=== PATIENT | female | born 1935 | race Caucasian/White ===

== ENCOUNTER 2024-02-19 06:15 | Outpatient (REF) | payer SELFPAY ==
[2024-02-19 06:28] LABS: MANUAL DIFF FLAG NO
[2024-02-19 06:39] LABS: Basophils Percent Auto 0.2 % (0-2); Eosinophils Absolute Auto 0.2 X10*3/uL (0.0-0.4); Eosinophils Percent Auto 2.5 % (0-4); Hematocrit 30.9 % (37.0-47.0); Hemoglobin 10.6 g/dl (12.0-16.0); Imm Gran Abs Auto 0.03 X10*3/uL (0.00-0.03); Imm Gran Pct Auto 0.3 % (0.0-0.4); Lymphocytes Absolute Auto 3.3 X10*3/uL (1.2-4.9); Lymphocytes Percent Auto 36.2 % (20-40); Mean Corpuscular HGB Conc 34.3 g/dl (31.0-35.0); Mean Corpuscular Hemoglobin 31.2 pg (27.0-33.0); Mean Corpuscular Volume 90.9 fL (80.0-98.0); Mean Platelet Volume 9.8 fL (9.4-12.3); Monocytes Absolute Auto 1.2 X10*3/uL (0.1-1.2); Monocytes Percent Auto 13.5 % (2-11); Neutrophils Absolute Auto 4.3 x10*3/uL (2.0-8.3); Neutrophils Percent Auto 47.3 % (45-73); Platelet Count 321 X10*3/uL (160-400); Red Cell Distribution Width 15.5 % (11.0-16.0); White Blood Count 9.1 X10*3/uL (4.8-10.8)
[2024-02-19 07:13] LABS: Alanine Aminotransferase 11 U/L (0-31); Albumin Level 2.7 g/dL (3.5-5.0); Alkaline Phosphatase 66 U/L (39-117); Anion Gap 10 (12-20); Aspartate Amino Transferase 19 U/L (5-31); Bilirubin Total 0.6 mg/dL (0.0-1.0); Blood Urea Nitrogen 13 mg/dL (9-16); Calcium 8.4 mg/dL (8.4-10.2); Carbon Dioxide 32 mmol/L (22-29); Chloride 100 mmol/L (96-108); Estimated Glomerular Filt Rate > 60; Glucose Random 88 mg/dL (60-115); Potassium 2.7 mmol/L (3.3-5.1); Sodium 139 mmol/L (135-145); Total Protein 5.5 g/dL (6.5-8.0)
== END 2024-02-19 06:16 | disposition home or self-care (01) ==
LOC: HO.MMNH1L 06:15
PROVIDERS: Visit Provider Family Medicine
DX: I10 Essential (primary) hypertension (principal)
CPT/HCPCS: 36415; 80053; 85025

== ENCOUNTER 2025-02-04 00:42 | Inpatient (IN) | payer MEDICARE, SELFPAY ==
[2025-02-04] VITALS (8 sets, daily range): BP systolic 105–147; BP diastolic 46–76; PULSE 70–88; RESP 14–20; TEMP 36.3–36.9; O2SAT 93–99; BMI 15.1
--- NOTE | ~2025-02-04 | CT_ITS ---
CLINICAL HISTORY: fall CT cervical spine without contrast Comparison: None Findings: There is 2 mm of anterolisthesis of C3 on C4. There is 4 mm of anterolisthesis of C4 on C5. There is straightening of the normal cervical lordosis within the lower cervical spine. Minor convex right mid cervical curvature. Bones are severely osteopenic. No acute fracture or prevertebral soft tissue swelling is identified. Multilevel degenerative disc disease and degenerative facet disease, most severe at C5-6 and C6-7 where there is near-complete loss of the disc space heights with discogenic sclerosis and osteophytic ridging. Upper airway is patent. Emphysematous changes within the lung apices without pneumothorax. Large bilateral pleural effusions. Partial visualization of a right internal jugular central venous catheter. IMPRESSION: 1. No acute fracture. 2. Multilevel spondylolisthesis with potential muscle spasm. 3. Multilevel degenerative disc disease and degenerative facet disease. 4. Large bilateral pleural effusions. Dedicated imaging of the chest is suggested. This document has been electronically signed by: Red Gay MD on 02/04/2025 02:59:25
--- NOTE | ~2025-02-04 | XR_ITS ---
CLINICAL HISTORY: pleural effusion seen on cervical spine CT 1 view chest x-ray Comparison: None Findings: Extensive bilateral reticular opacities, interstitial edema or infiltrate versus chronic interstitial lung change. Bilateral basilar consolidations or infiltrates and small layering effusions. Heart size is normal. No acute fracture. Right anterior chest wall Port-A-Cath with distal tip at the cavoatrial junction. IMPRESSION: 1. Extensive bilateral reticular opacities, interstitial edema or infiltrate versus chronic interstitial lung change. 2. Bilateral basilar consolidations or infiltrates and small layering effusions. This document has been electronically signed by: Bravo Morales MD, PHD on 02/04/2025 04:05:35
--- NOTE | ~2025-02-04 | CT_ITS ---
CLINICAL HISTORY: fall CT head without contrast Comparison: None Findings: There is age-appropriate atrophy. Ex vacuo dilatation of the ventricular system related to this degree of atrophy. [id number] areas of low-attenuation are identified within the periventricular and deep white matter. [place]-white differentiation is well preserved. No midline shift or mass effect. No intracranial hemorrhage. No acute calvarial fracture. IMPRESSION: 1. No fracture or intracranial hemorrhage. 2. Senescent changes as above. This document has been electronically signed by: Red Gay MD on 02/04/2025 02:55:52
--- NOTE | ~2025-02-04 | XR_ITS ---
CLINICAL HISTORY: fall injury 3 view right wrist Comparison: None Findings: Imaged scaphoid deformity appears old/chronic. Small calcification or ossicle appears old/chronic adjacent to the scaphoid trapezium articulation. 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 Additional osteoarthritis is moderate and multifocal. Soft tissue swelling with effusion present. Vascular calcifications including expected radial and ulnar arteries IMPRESSION: 1. Moderate osteoarthritis of the right wrist. 2. Mild Scaphoid deformity is nonspecific and likely old/chronic. This document has been electronically signed by: Osmin Araiza MD on 02/04/2025 02:44:12
--- NOTE | 2025-02-04 01:06 | ECG_ITS ---
Test Reason : FALL Blood Pressure : */* mmHG Vent. Rate : 75 BPM Atrial Rate : 75 BPM P-R Int : 276 ms QRS Dur : 122 ms QT Int : 370 ms P-R-T Axes : 80 -24 97 degrees QTcB Int : 413 ms Sinus rhythm with 1st degree A-V block Left ventricular hypertrophy with QRS widening and repolarization abnormality ( Matti product ) Abnormal ECG No previous ECGs available Referred By: Generic ED Physician Electronically Signed By: Negro Gomez
[2025-02-04 01:56] LABS: MANUAL DIFF FLAG NO
[2025-02-04 01:57] LABS: Basophils Percent Auto 0.3 % (0-2); Eosinophils Absolute Auto 0.1 X10*3/uL (0.0-0.4); Eosinophils Percent Auto 1.5 % (0-4); Hematocrit 32.3 % (37.0-47.0); Hemoglobin 11.4 g/dl (12.0-16.0); Imm Gran Abs Auto 0.08 X10*3/uL (0.00-0.03); Imm Gran Pct Auto 0.9 % (0.0-0.4); Lymphocytes Absolute Auto 0.7 X10*3/uL (1.2-4.9); Lymphocytes Percent Auto 8.2 % (20-40); Mean Corpuscular HGB Conc 35.3 g/dl (31.0-35.0); Mean Corpuscular Hemoglobin 31.6 pg (27.0-33.0); Mean Corpuscular Volume 89.5 fL (80.0-98.0); Mean Platelet Volume 10.3 fL (9.4-12.3); Monocytes Absolute Auto 0.9 X10*3/uL (0.1-1.2); Neutrophils Absolute Auto 6.9 x10*3/uL (2.0-8.3); Neutrophils Percent Auto 79.1 % (45-73); Platelet Count 238 X10*3/uL (160-400); Red Blood Count 3.61 X10*6/uL (4.20-5.50); Red Cell Distribution Width 15.6 % (11.0-16.0); White Blood Count 8.8 X10*3/uL (4.8-10.8)
[2025-02-04 02:02] LABS: INTERNATIONAL NORM RATIO 1.3 (0.9-1.1); Prothrombin Time 15.1 SEC (10.9-12.4)
[2025-02-04 02:22] LABS: Alanine Aminotransferase 84 U/L (0-31); Albumin Level 1.9 g/dL (3.5-5.0); Alkaline Phosphatase 96 U/L (39-117); Anion Gap 11 (12-20); Aspartate Amino Transferase 122 U/L (5-31); Bilirubin Total 0.6 mg/dL (0.0-1.0); Blood Urea Nitrogen 14 mg/dL (9-16); Carbon Dioxide 28 mmol/L (22-29); Chloride 104 mmol/L (96-108); Creatinine Clr Calc Pharmacy 41.6; Estimated Glomerular Filt Rate > 60; Glucose Random 80 mg/dL (60-115); Potassium 3.5 mmol/L (3.3-5.1); Sodium 139 mmol/L (135-145); Total Protein 4.6 g/dL (6.5-8.0)
[2025-02-04 02:28] LABS: Troponin-I High Sensitivity 56.5 ng/L (<3.5-17.0)
--- NOTE | 2025-02-04 03:20 | PC.NURSE ---
TW spoke with Traci requesting update on pt. Explained we were awaiting on provider to read reports. TW questioned cocyx pressure wound noted. Traci reports that PT is seen by wound care. Wound care orders per zoran : Cleanse with NS. pat dry and apply zinc oxide, leave open to air.
--- NOTE | 2025-02-04 03:54 | ED_ITS ---
HPI - Fall General Chief Complaint: Fall Stated Complaint: SNF fall, skin tears, +thinners & collar, unkn LOC Time Seen by Provider: 02/04/25 03:35 Source: patient and EMS Mode of arrival: EMS Limitations: no limitations History of Present Illness ED Provider: Dr. Alla Cerna HPI Narrative: Patient comes to the emergency room via ambulance from [facility]. Patient had an unwitnessed fall. According to the patient, patient was sleeping and she accidentally rolled out of bed and fell down. Patient has skin tears to the left side of the face cheek, no side of the neck and right wrist. Patient denies headache. Patient does take blood thinners. Patient denies headache. Related Data Allergies Allergy/AdvReac Type Severity Reaction Status Date / Time Iodinated Contrast Media Allergy Fever Verified 02/04/25 01:30 [Contrast Dye] ondansetron [From Zofran] Allergy Headache Verified 02/04/25 01:30 Review of Systems 2 Review of Systems: Constitutional : No Weight loss, No Fever, No Chills, No Night Sweats, No Fatigue, No Malaise ENT/Mouth : No Hearing loss, No Ear Pain, No Nasal Congestion, No Sinus Pain, No Hoarseness, No sore throat, No Rhinorrhea, No Swallowing Difficulty Eyes: No Eye Pain, No Swelling, No Redness, No Foreign Body, No Discharge, No Vision Changes Cardiovascular : No Chest Pain, No SOB, No Dyspnea on Exertion, No Orthopnea, No Edema, No Palpitations Respiratory : No Cough, No Sputum, No Wheezing, No Smoke Exposure, No Dyspnea Gastrointestinal : No Nausea, No Vomiting, No Diarrhea, No Constipation, No abdominal Pain, No Hematochezia, No Melena Genitourinary : no irregular bleeding, No Dysuria, No Urinary Frequency, No Hematuria, No Urinary Incontinence, No Urgency, No Flank Pain, No Urinary Flow Changes, No Hesitancy Musculoskeletal : No joint pain, No Myalgias, No Joint Swelling Skin : Complaining of pain over the skin tears on the right wrist left side of the face and left neck Neuro : No Weakness, No Numbness, No Paresthesias, No Loss of Consciousness, No Dizziness, No Headache Psych : No Anxiety/Panic, No Depression, No SI/HI/AH/VH, No Social Issues, Heme/Lymph: No Bruising, No Bleeding,No Lymphadenopathy Endocrine : No Polyuria, No Polydipsia, No Temperature Intolerance [facility] Past Medical History Medical History (Updated 02/04/25 @ 07:39 by Alla Cerna MD) 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 Oriented X3. No acute distress. Eyes: Pupils equal, round and reactive to light. ENT: Pharynx normal. Neck: Normal inspection. Neck supple. No lymph nodes noted. No crepitus CVS: Normal heart rate and rhythm. Pulses normal. Normal S1 and S2 Respiratory: No respiratory distress. Breath sounds normal. No Wheezing. No rales Abdomen: Soft and nontender. No rigidity. No distention. Skin: patient has a large skin tear, U shaped in the dorsal aspect of the right wrist. Also, patient has a triangular shaped large tear on the left side of the neck and a smaller 1 on the left side of the face. Patient has a chronic pressure wound on the coccyx, looks clean Extremities: No lower extremity edema. No Lacerations. No Rash Neuro: Oriented X 3. No motor deficit. No sensory deficit. Moving all extremities. No slurred speech. CN 2 through 12 grossly intact Psych: calm, cooperative, normal affect Medications Administered Discontinued Medications Generic Name Dose Route Start Last Admin Trade Name Bradq PRN Reason Stop Dose Admin Acetaminophen 975 mg 02/04/25 04:31 02/04/25 05:03 Acetaminophen 325 Mg Tablet PO 02/04/25 04:32 975 mg ONCE ONE Administration Cefuroxime Axetil 250 mg 02/04/25 05:38 02/04/25 06:42 Cefuroxime Axetil 250 Mg Tablet PO 02/04/25 05:39 250 mg ONCE ONE Administration Prochlorperazine Maleate 5 mg 02/04/25 04:47 02/04/25 05:00 Prochlorperazine Maleate 5 Mg Tablet PO 02/04/25 04:48 5 mg ONCE ONE Administration Medical Decision Making Medical Decision Making [facility] Narrative: my interpretation of labs: Patient's hematology at baseline, no significant chemistry abnormalities. Troponin 1. 56.5, no previous troponins for comparison. Patient denies any chest pain or shortness of breath my interpretation of EKG: Sinus rhythm, first-degree AV block, heart rate 75, no ST segment depression, nonspecific T-wave changes in V5 V6, QTC 413 patient denies any chest pain. Wrist x-ray: No fracture, patient does not have any scaphoid tenderness, likely chronic finding head CT and cervical spine do not show any acute abnormality. Old changes. However, CT scan of the neck shows large bilateral pleural effusions. Chest x-ray pending. Patient has no shortness of breath, even laying supine, patient's oxygen saturation remains at 99% chest x-ray: Reticular opacities, edema versus infiltrate versus chronic interstitial lung changes. Patient has no shortness of breath, no oxygen desaturation. Patient is able to lie supine with oxygen saturation 99%. Patient denies any cough or any URI symptoms. these are likely chronic changes. Patient is not fluid overloaded patient's troponin 1. Was 56.5. Patient's troponin 2. Increased to 149.1 troponin increased more than the 50. Admission request was sent to Dr. Scruggs, call back pending sign out given to Dr Mazariegos Differential Diagnosis Differential Diagnoses: The differential diagnosis associated with the presentation includes ( skin tears, contusions, concussion, intracranial bleed, cervical spine injury. Wrist fractures) Admission/Observation Consideration of admission/observation: Escalation of care including admission/observation considered Lab Data [facility] Lab Attestation statement: I reviewed the patient's lab results. 02/04/25 01:51 02/04/25 01:51 Labs: Lab Results 02/04/25 02/04/25 02/04/25 Range/Units 01:51 05:10 06:24 WBC 8.8 (4.8-10.8) X10*3/uL RBC 3.61 L D (4.20-5.50) X10*6/uL Hgb 11.4 L D (12.0-16.0) g/dl Hct 32.3 L (37.0-47.0) % MCV 89.5 (80.0-98.0) fL MCH 31.6 (27.0-33.0) pg MCHC 35.3 H (31.0-35.0) g/dl RDW 15.6 (11.0-16.0) % Plt Count 238 (160-400) X10*3/uL MPV 10.3 (9.4-12.3) fL Immature Gran % (Auto) 0.9 H (0.0-0.4) % Neut % (Auto) 79.1 H (45-73) % Lymph % (Auto) 8.2 L (20-40) % Hand % (Auto) 10.0 (2-11) % Eos % (Auto) 1.5 (0-4) % Baso % (Auto) 0.3 (0-2) % Lymph # (Auto) 0.7 L (1.2-4.9) X10*3/uL Hand # (Auto) 0.9 (0.1-1.2) X10*3/uL Eos # (Auto) 0.1 (0.0-0.4) X10*3/uL Baso # (Auto) 0.0 (0.0-0.2) X10*3/uL Abs Immat Gran (auto) 0.08 H (0.00-0.03) X10*3/uL Absolute Neuts (auto) 6.9 (2.0-8.3) x10*3/uL Absolute Nucleated RBC 0.000 (0.0-0.012) X10*3/uL Nucleated RBC % (auto) 0.0 (0.0-0.2) /100WBC PT 15.1 H (10.9-12.4) SEC INR 1.3 H (0.9-1.1) Sodium 139 (135-145) mmol/L Potassium 3.5 D (3.3-5.1) mmol/L Chloride 104 (96-108) mmol/L Carbon Dioxide 28 (22-29) mmol/L Anion Gap 11 L (12-20) BUN 14 (9-16) mg/dL Creatinine 0.65 (0.5-1.4) mg/dL Estim Creat Clear Calc 41.6 Estimated GFR > 60 Random Glucose 80 (60-115) mg/dL Calcium 8.0 L D (8.4-10.2) mg/dL Total Bilirubin 0.6 (0.0-1.0) mg/dL AST 122 H (5-31) U/L ALT 84 H (0-31) U/L Alkaline Phosphatase 96 (39-117) U/L Troponin I High Sens 56.5 H* 149.1 H* D (<3.5-17.0) ng/L Total Protein 4.6 L (6.5-8.0) g/dL Albumin 1.9 L (3.5-5.0) g/dL Urine Color Dark Yellow Urine Appearance Cloudy Urine pH 6.5 (5.0-9.0) Ur Specific [place] 1.015 (1.005-1.025) Urine Protein 30 (1+) H (Neg-Trace) mg/dL Urine Glucose (UA) Negative (Negative) mg/dL Urine Ketones 15 (Negative) mg/dL Urine Blood Small (1+) H (Negative) Urine Nitrite Negative (Negative) Ur Leukocyte Esterase Large (3+) H (Negative) Urine RBC 6-10 H (0-2) /HPF Urine WBC >50 H (0-5) /HPF Ur Squamous Epith Cells 0-2 (0-2) /HPF Urine Bacteria Trace (None Seen) Hyaline Casts 0-2 (0-2) /LPF Independent Interpretation I performed an independent interpretation of an: EKG and Plain X-Ray Radiology Impression Discussion of test interpretation with radiology: I have reviewed the radiologist's reading. Radiologist Impression: Imaged scaphoid deformity appears old/chronic. Small calcification or ossicle appears old/chronic adjacent to the scaphoid trapezium articulation. 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 Additional osteoarthritis is moderate and multifocal. Soft tissue swelling with effusion present. Vascular calcifications including expected radial and ulnar arteries There is age-appropriate atrophy. Ex vacuo dilatation of the ventricular system related to this degree of atrophy. [id number] areas of low-attenuation are identified within the periventricular and deep white matter. [place]-white differentiation is well preserved. No midline shift or mass effect. No intracranial hemorrhage. No acute calvarial fracture. Discharge Plan Discharge Clinical Impression: Fall, Multiple skin tears, Elevated troponin Patient Disposition: Admitted As Inpatient Additional Instructions: Please follow-up with your primary care physician tomorrow. If you have any worsening or new symptoms, please return to the emergency room or call 911 Print Language: Cambodian
[2025-02-04] MEDS: Prochlorperazine Maleate 5 MG TABLET PO (05:00)
[2025-02-04] MEDS: Acetaminophen 325 MG TABLET 975 MG PO (05:03)
[2025-02-04 05:15] LABS: Appearance Urine Cloudy; Color Urine Dark Yellow; Glucose Urine UA Negative (Negative); Leukocyte Esterase Urine Large (3+) (Negative); Nitrite Urine Negative (Negative); PH 6.5 (5.0-9.0); Specific Gravity - Urine 1.015 (1.005-1.025); UMIC TRIGGER UACC YES; Urine Blood Small (1+) (Negative); Urine Ketones 15 mg/dL (Negative); Urine Protein 30 (1+) mg/dL (Neg-Trace)
[2025-02-04 05:24] LABS: Bacteria Urine Trace (None Seen); Hyaline Casts Urine 0-2 /LPF (0-2); Squamous Epithelial Cell Urine 0-2 /HPF (0-2); UACC Culture Trigger YES; WBC Urine >50 /HPF (0-5)
[2025-02-04] MEDS: cefuroxime axetiL 250 MG TABLET PO ×2 (06:42→13:18)
[2025-02-04 07:25] LABS: Troponin-I High Sensitivity 149.1 ng/L (<3.5-17.0)
--- NOTE | 2025-02-04 08:06 | PHA.MEDREC ---
Pharmacy Consult ? Medication Reconciliation Pharmacy has completed the medication reconciliation. Utilized list from [facility]. OF NOTE: patient had a recent fill in Nov 2024 for Farxiga (only 30 days however) however it is not included on patients list from SNF.
[2025-02-04 08:59] LABS: B Type Natriuretic Peptide 615 pg/mL (<100)
[2025-02-04 10:29] LABS: Troponin-I High Sensitivity 164.1 ng/L (<3.5-17.0)
[2025-02-04] MEDS: Furosemide 20 MG/2 ML VIAL 10 MG IVPUSH (10:45)
[2025-02-04 11:11] LABS: Magnesium 1.4 mg/dL (1.6-2.6)
[2025-02-04 11:25] LABS: TSH reflex Free T4 0.83 uIU/mL (0.32-4.0)
--- NOTE | 2025-02-04 11:26 | PM.IMHP ---
History of Present Illness Date of Service: 02/04/25 Attending physician on admission: Daniela Marie Chief Complaint: s/p fall no LOC Pt is an 89 yo female with past medical history of hypothyroidism, GERD, CVA, B maculardegenerative changes, lymphoma diagnosed 2023 currently on chemotherapy, depression, osteoarthritis, recent weight loss and frailty due to lymphoma diagnosis, systolic CHF and history of cholecystectomy, full hysterectomy and R mastectomy due to breast cancer age 60 presents to [facility] status post fall at [facility]. Patient stated she was trying to turn in bed and fell through the bed but was able to call help. Patient does not recall loss of consciousness. Patient currently has abrasions on the left cheek and behind the neck area. CT of the head and cervical spine are all negative for any acute issues. Wrist xrays of R wristy also done and note osteogenerative changes byt no acute findings. Patient is currently alert and orientated x3 moving all extremities. In addition chest x-ray noted large bilateral pleural effusions and troponins that have elevated from 50 to 149 to now 160 during her time in the emergency department. EKG is negative for any ischemic changes but notes a Sinus rhythm, first-degree AV block, heart rate 75, no ST segment depression, nonspecific T-wave changes in V5 V6, QTC 413. Cardiology had been contacted by ED staff prior to admission. Patient denies any chest pain or SOB at rest. Pt is not currently requiring oxygen as well. Pt did receive 10 IV lasix in ED. Pt was hypokalmeic on admission, 2.7 but with supplementation, this has been corrected. Patient is considered frail with significant weight loss since 2023 of over 65 lb secondary to a diagnosis of lymphoma. Patient was to see the oncologist today at [facility] to discuss resumption of chemotherapy but per patient's son who is also the healthcare proxy, chemo likely will not resume. Reviewed advanced directives patient is currently a DNR DNI. Pt follows with Dr Gutierrez at [facility]. Last echo was 11/06/2023 per pt's daughter. Review of Systems Review of Systems: Pt currently denies chest pain, SOB at rest, abdominal pain, N/V, lower leg pain, joint pain but reports feeling very fatigued and tired as she was not able to sleep last night. Yes all other systems are reviewed and are negative [facility] Medical History (Updated 02/04/25 @ 12:34 by CHRISTINA Anderson) Hx of fdc use of blood thinners Hyperlipidemia CLL (chronic lymphocytic leukemia) Acute exacerbation of CHF (congestive heart failure) Hypertension Hypothyroidism CVA (cerebral vascular accident) Cognitive capacity: Alert and orientated X3 Ebola Risk: Travel/Contact With Anyone From Affected Area/s: No Has Patient Experienced Ebola Symptoms: No I have personally reviewed the patient's Ebola risk: Yes Meds Allergies Allergy/AdvReac Type Severity Reaction Status Date / Time Iodinated Contrast Media Allergy Fever Verified 02/04/25 01:30 [Contrast Dye] ondansetron [From Zofran] Allergy Headache Verified 02/04/25 01:30 Active Medications: Current Medications Acetaminophen (Acetaminophen 325 Mg Tablet) 650 mg PO Q6H PRN PRN Reason: Pain, Mild 1-3,fever,headache Calcium Carbonate (Calcium Carbonate 750 Mg Tab.Chew) 750 mg PO Q4H PRN PRN Reason: Heartburn Magnesium Hydroxide (Milk Of Magnesia 30 Ml Oral.Susp) 30 ml PO DAILY PRN PRN Reason: Constipation Melatonin (Melatonin 3 Mg Tablet) 6 mg PO BEDTIME PRN PRN Reason: Insomnia Ondansetron HCl (Ondansetron Hcl 4 Mg/2 Ml Vial) 4 mg IVPUSH Q8H PRN PRN Reason: Nausea and Vomiting Pharmacy Consult (Consult Rx Anticoag Dosing) 1 each MISCELLANE DAILY PRN; Protocol PRN Reason: Consult order Polyethylene Glycol (Polyethylene Glycol 3350 17 Gm Powd.Pack) 17 gm PO DAILY PRN PRN Reason: Constipation Senna (Sennosides 8.6 Mg Tablet) 17.2 mg PO BEDTIME DIANA Sodium Chloride (0.9 % Sodium Chloride Flush 3 Ml Syringe) 3 ml IVFLUSH QSHIFT [facility] Home Medications ?Medication ?Instructions ?Recorded ?Confirmed ?Last Taken ?Type acetaminophen 325 mg tablet 650 mg PO Q6H PRN Mild Pain (Scale 02/04/25 02/04/25 Unknown History Score 1-4) amiodarone 200 mg tablet 200 mg PO DAILY 02/04/25 02/04/25 Unknown History apixaban 2.5 mg tablet (Eliquis) 2.5 mg PO BID 02/04/25 02/04/25 Unknown History ascorbic acid (vitamin C) 250 mg 250 mg PO DAILY 02/04/25 02/04/25 Unknown History tablet atorvastatin 20 mg tablet 20 mg PO BEDTIME 02/04/25 02/04/25 Unknown History bisacodyl 10 mg rectal suppository 10 mg CA DAILY PRN 3 days with no 02/04/25 02/04/25 Unknown History (Dulcolax (bisacodyl)) BM cholecalciferol (vitamin D3) 25 25 mcg PO DAILY 02/04/25 02/04/25 Unknown History mcg (1,000 unit) tablet escitalopram oxalate 20 mg tablet 20 mg PO DAILY 02/04/25 02/04/25 Unknown History esomeprazole magnesium 40 mg 40 mg PO DAILY 02/04/25 02/04/25 Unknown History capsule,delayed release fludrocortisone 0.1 mg tablet 0.1 mg PO BID 02/04/25 02/04/25 Unknown History levothyroxine 125 mcg tablet 125 mcg PO DAILY 02/04/25 02/04/25 Unknown History multivitamin 1 tab PO DAILY 02/04/25 02/04/25 Unknown History potassium chloride 20 mEq 20 meq PO DAILY 02/04/25 02/04/25 Unknown History tablet,extended release prednisone 1 mg tablet 4 mg PO DAILY 02/04/25 02/04/25 Unknown History prochlorperazine maleate 5 mg 5 mg PO Q6H PRN nausea 02/04/25 02/04/25 Unknown History tablet Physical Exam Vital Signs and Narrative: Vital Signs: Last Vital Signs Temp 98.5 F 02/04/25 04:31 Pulse 74 02/04/25 09:11 Resp 14 02/04/25 09:11 BP 139/67 02/04/25 10:45 Pulse Ox 94 02/04/25 09:11 O2 Del Method Room Air 02/04/25 09:11 BMI result Body Mass Index 15.1 Alert and orientated X3, able to give good history. Neuro: CN II-X11 intact, no deficits, visual acuity intact EYES: PERRLA, EOM intact ENT: PASCUA YAQUI, no issues with swallowing, uvula midline, lips moist, nares patent no epistaxis Cardiac: S1 S2 RRR, no murmur, mild JVD, no edema in Lower ext Pulmonary: lungs diminshed B no adventitious sounds Abdominal: BS active in all 4 quadrants, no guarding, tenderness, rebounding MSK: strength 3/5 upper and lower extremities, pt is frail and underweight : no CVA tenderness no bladder distension Extremities: no edema in lower extremities, PT and DP pulses palpable +2 Psych: mood stable, judgement and insight good Results Labs 02/04/25 01:51 02/04/25 01:51 Labs: Laboratory Results - last 24 hr 02/04/25 02/04/25 02/04/25 01:51 05:10 08:18 MCV 89.5 MCH 31.6 MCHC 35.3 H RDW 15.6 Plt Count 238 MPV 10.3 Immature Gran % (Auto) 0.9 H Neut % (Auto) 79.1 H Lymph % (Auto) 8.2 L [place] % (Auto) 10.0 Eos % (Auto) 1.5 Baso % (Auto) 0.3 Lymph # (Auto) 0.7 L [place] # (Auto) 0.9 Eos # (Auto) 0.1 Baso # (Auto) 0.0 Abs Immat Gran (auto) 0.08 H Absolute Neuts (auto) 6.9 Absolute Nucleated RBC 0.000 Nucleated RBC % (auto) 0.0 PT 15.1 H INR 1.3 H Anion Gap 11 L Estim Creat Clear Calc 41.6 Estimated GFR > 60 Random Glucose 80 Calcium 8.0 L D Magnesium 1.4 L* Total Bilirubin 0.6 AST 122 H ALT 84 H Alkaline Phosphatase 96 Total Creatine Kinase 52 B-Natriuretic Peptide 615 H Total Protein 4.6 L Albumin 1.9 L TSH 0.83 Urine Color Dark Yellow Urine Appearance Cloudy Urine pH 6.5 Ur Specific [place] 1.015 Urine Protein 30 (1+) H Urine Glucose (UA) Negative Urine Ketones 15 Urine Blood Small (1+) H Urine Nitrite Negative Ur Leukocyte Esterase Large (3+) H Urine RBC 6-10 H Urine WBC >50 H Ur Squamous Epith Cells 0-2 Urine Bacteria Trace Hyaline Casts 0-2 ECG Attestation: I personally reviewed and interpreted this ECG as follows: ( Sinus rhythm, first-degree AV block, heart rate 75, no ST segment depression, nonspecific T-wave changes in V5 V6, QTC 413 patient denies any chest pain.) Imaging Radiologist's Impressions: CXR IMPRESSION: 1. Extensive bilateral reticular opacities, interstitial edema or infiltrate versus chronic interstitial lung change. 2. Bilateral basilar consolidations or infiltrates and small layering effusions. Cervical SPine IMPRESSION: 1. No acute fracture. 2. Multilevel spondylolisthesis with potential muscle spasm. 3. Multilevel degenerative disc disease and degenerative facet disease. 4. Large bilateral pleural effusions. Dedicated imaging of the chest is suggested. CT head IMPRESSION: 1. No fracture or intracranial hemorrhage. 2. Senescent changes as above. Wrist Xray IMPRESSION: 1. Moderate osteoarthritis of the right wrist. 2. Mild Scaphoid deformity is nonspecific and likely old/chronic. Assessment and Plan (1) Acute exacerbation of CHF (congestive heart failure): Qualifiers: Heart failure type: systolic Qualified Code(s): I50.23 - Acute on chronic systolic (congestive) heart failure Status: Acute (2) Hypokalemia: Status: Acute (3) Elevated troponin: Status: Acute (4) First degree atrioventricular block: Status: Acute (5) Afib: Status: Acute (6) Sacral decubitus ulcer: Qualifiers: Pressure injury stage: unspecified pressure injury stage Qualified Code(s): L89.159 - Pressure ulcer of sacral region, unspecified stage Status: Acute (7) Underweight: Status: Acute (8) Multiple skin tears: Status: Acute (9) Fall: Qualifiers: Encounter type: initial encounter Qualified Code(s): W19.XXXA - Unspecified fall, initial encounter Status: Acute (10) History of CVA (cerebrovascular accident): Status: Acute (11) CLL (chronic lymphocytic leukemia): Status: Acute (12) Hypothyroidism: Qualifiers: Hypothyroidism type: acquired Qualified Code(s): E03.9 - Hypothyroidism, unspecified Status: Acute (13) Hyperlipidemia: Qualifiers: Hyperlipidemia type: mixed hyperlipidemia Qualified Code(s): E78.2 - Mixed hyperlipidemia Status: Acute (14) Hypomagnesemia: Status: Acute (15) Transaminitis: Status: Acute Plan 1. Acute CHF exacerbation with large B pleural effusions, no hypoxia BNP 615 LFTs slightly elevated (do not suspect shock liver) pt is on amiodorone Pt received 10 mg of IV lasix X1 in ED not on oxygen strict I/Os ordered with daily wt no olguin required currently Lasix 20 IV daily KCL supplementation added as K was low on admission Telemetry ? if Pleural effusions related to CLL (pt has not been able to attend chemo since being in rehab), pt is not compromised If Thoracic available, can refer if needed for thoracentesis Cardiology consulted, pt follows with Dr. Gutierrez at [facility] Troponins elevated likely due to ischemic demand, 49 - 149- 160 non specific T wave changes on ECG, contiunue to trend Last Echo 11/06/23 will order echo 2. Hypokalemia 2.7 on admission Corrected to 3.5 Now on Lasix adding daily supplementation and BMP daily Telemetry 3. Elevated Troponin Likely related to ischemic demand, no chest pain, no ST elevations, some non specific T wave changes Continue to trend and cardiology consulted Telemetry 4. First Degree AVB CA 227 pt placed on telemetry Pt is on Amiodorone but no AV ronel blocking agents Cardiology consulted Checking TSH with reflex and magnesium 5. AFIB Pt continues on AC 2.5 daily Holding Amiodorone noting first degree block, await review from Cardiology LFTs elevated likely secondary to CHF or CLL, trend 6. Sacral Decubitus Ulcer Unclear date of etiology, pt is underweight with poor appetite, living with CLL dx Nutritional consult ordered ensure added Wound care consult ordered 7. Underweight with BMI 15.1 Nutritional consult ordered ensure added Wound care consult ordered Daily weights PT consulted for tomorrow, pt will likely return to [facility] to continue rehab 10. HX of CVA Pt has been in [facility] for rehab Pt overall is weak, malnourished dealing with CLL but no obvious deficits BP stable, pt is on eliquis 11. CLL recently on chemo Per pt's son, pt had appt today with oncology at [facility] but will not be able to attend Son indicated that pt may not be able to continue chemo any longer noting weakness, wt loss and poor appetite DNR DNI in place 12. UTI suspected UA looks suspicious for UTI Pt was started on Ceftin in ED will continue and follow culture No olguin indicated as pt is able to void 12. Hypothyrooidism Checking TSH with reflex Continue current dose of levothyroxine, await lab results 13. HLD Atorvastatin 20 mg HS, LFTs mildy elevated, will hold 14. Hypomagnesium MG 1.4, administering 2 GM IV now 400 mg daily recheck in AM 15. Transaminitis Likely secondary to CHf exacerbation vs CLL Trend Amiodorone and statin held today Total time managing care of this patient today: 45 minutes. Quality Stroke Does the patient have a stroke diagnosis?: No Reason for No Anti-thrombotic by Day Two: N/A - Med Ordered VTE Prior VTE?: No VTE Risk Level:: Medical - moderate - high VTE Device Contraindication: N/A - Device Ordered VTE Drug Contraindication: N/A - Med Ordered
--- NOTE | 2025-02-04 11:42 | PC.NURSE ---
Pt moved into hospital bed for comfort. repositioning patient side to side every 2 hours.
--- NOTE | 2025-02-04 11:48 | PC.NURSE ---
Messaged FARM MANAGER Brandyn regarding lasix, she advises to not give additional lasix at this time. wound care consult requested.
--- NOTE | 2025-02-04 12:11 | PM.CNCAR ---
History of Present Illness History of Present Illness Date of Service: 02/04/25 Requesting physician: Jacinda Ahumada Chief complaint: S/P Fall, ?CHF Narrative: [age] year female presenting with fall. History is quite limited from the patient as she is a poor historian. Chest x-ray has raise concern for potential infiltrates versus congestive heart failure. She is laying flat in bed and is not in any distress. She is denying any shortness of breath. No chest discomfort. Overall poor historian. On amiodarone and Eliquis 2.5 mg twice a day for previous history of atrial fibrillation. ECG showing left ventricular hypertrophy and first-degree AV block with SD interval 276 milliseconds. [facility], [facility] Past Medical History Medical History (Updated 02/04/25 @ 12:34 by CHRISTINA Anderson) Hx of emt intermediate use of blood thinners Hyperlipidemia CLL (chronic lymphocytic leukemia) Acute exacerbation of CHF (congestive heart failure) Hypertension Hypothyroidism CVA (cerebral vascular accident) Social History Social History (Updated 02/04/25 @ 11:42 by CHRISTINA Anderson) Are you DNR?: Yes Advance Directives: Yes Advance Directives Information Provided: Yes Healthcare Proxy: Yes If Yes to HCP, is it invoked: No Guardian: No Do you have a plan to hurt others: No Plan Travel History Ebola Risk: Travel/Contact With Anyone From Affected Area/s: No Has Patient Experienced Ebola Symptoms: No Meds Allergies Allergy/AdvReac Type Severity Reaction Status Date / Time Iodinated Contrast Media Allergy Fever Verified 02/04/25 01:30 [Contrast Dye] ondansetron [From Zofran] Allergy Headache Verified 02/04/25 01:30 Active Medications: Current Medications Acetaminophen (Acetaminophen 325 Mg Tablet) 650 mg PO Q6H PRN PRN Reason: Pain, Mild 1-3,fever,headache Calcium Carbonate (Calcium Carbonate 750 Mg Tab.Chew) 750 mg PO Q4H PRN PRN Reason: Heartburn Magnesium Hydroxide (Milk Of Magnesia 30 Ml Oral.Susp) 30 ml PO DAILY PRN PRN Reason: Constipation Melatonin (Melatonin 3 Mg Tablet) 6 mg PO BEDTIME PRN PRN Reason: Insomnia Ondansetron HCl (Ondansetron Hcl 4 Mg/2 Ml Vial) 4 mg IVPUSH Q8H PRN PRN Reason: Nausea and Vomiting Polyethylene Glycol (Polyethylene Glycol 3350 17 Gm Powd.Pack) 17 gm PO DAILY PRN PRN Reason: Constipation Senna (Sennosides 8.6 Mg Tablet) 17.2 mg PO BEDTIME DIANA Sodium Chloride (0.9 % Sodium Chloride Flush 3 Ml Syringe) 3 ml IVFLUSH QSHIFT [facility] Home Medications ?Medication ?Instructions ?Recorded ?Confirmed ?Last Taken ?Type acetaminophen 325 mg tablet 650 mg PO Q6H PRN Mild Pain (Scale 02/04/25 02/04/25 Unknown History Score 1-4) amiodarone 200 mg tablet 200 mg PO DAILY 02/04/25 02/04/25 Unknown History apixaban 2.5 mg tablet (Eliquis) 2.5 mg PO BID 02/04/25 02/04/25 Unknown History ascorbic acid (vitamin C) 250 mg 250 mg PO DAILY 02/04/25 02/04/25 Unknown History tablet atorvastatin 20 mg tablet 20 mg PO BEDTIME 02/04/25 02/04/25 Unknown History bisacodyl 10 mg rectal suppository 10 mg SD DAILY PRN 3 days with no 02/04/25 02/04/25 Unknown History (Dulcolax (bisacodyl)) BM cholecalciferol (vitamin D3) 25 25 mcg PO DAILY 02/04/25 02/04/25 Unknown History mcg (1,000 unit) tablet escitalopram oxalate 20 mg tablet 20 mg PO DAILY 02/04/25 02/04/25 Unknown History esomeprazole magnesium 40 mg 40 mg PO DAILY 02/04/25 02/04/25 Unknown History capsule,delayed release fludrocortisone 0.1 mg tablet 0.1 mg PO BID 02/04/25 02/04/25 Unknown History levothyroxine 125 mcg tablet 125 mcg PO DAILY 02/04/25 02/04/25 Unknown History multivitamin 1 tab PO DAILY 02/04/25 02/04/25 Unknown History potassium chloride 20 mEq 20 meq PO DAILY 02/04/25 02/04/25 Unknown History tablet,extended release prednisone 1 mg tablet 4 mg PO DAILY 02/04/25 02/04/25 Unknown History prochlorperazine maleate 5 mg 5 mg PO Q6H PRN nausea 02/04/25 02/04/25 Unknown History tablet Physical Exam Vital Signs: Vital Signs: Last Vital Signs Temp 98.5 F 02/04/25 04:31 Pulse 76 02/04/25 12:05 Resp 20 02/04/25 12:05 BP 147/62 H 02/04/25 12:05 Pulse Ox 98 02/04/25 12:05 O2 Del Method Room Air 02/04/25 12:05 BMI result Body Mass Index 15.1 GENERAL APPEARANCE: Frail, old lady laying flat in bed. In no distress. NECK: no carotid bruit, no jugular venous distention. SKIN: no suspicious lesions, warm and dry. HEART: no murmurs, regular rate and rhythm. LUNGS: clear to auscultation bilaterally. ABDOMEN: soft, nontender. EXTREMITIES: no edema. PERIPHERAL PULSES: equal. NEUROLOGIC: No gross deficits, AAO X 3 Objective Labs and Meds 02/04/25 01:51 02/04/25 01:51 Lab results: Laboratory Results - last 24 hr 02/04/25 02/04/25 02/04/25 01:51 05:10 06:24 WBC 8.8 RBC 3.61 L D Hgb 11.4 L D Hct 32.3 L MCV 89.5 MCH 31.6 MCHC 35.3 H RDW 15.6 Plt Count 238 MPV 10.3 Immature Gran % (Auto) 0.9 H Neut % (Auto) 79.1 H Lymph % (Auto) 8.2 L [place] % (Auto) 10.0 Eos % (Auto) 1.5 Baso % (Auto) 0.3 Lymph # (Auto) 0.7 L [place] # (Auto) 0.9 Eos # (Auto) 0.1 Baso # (Auto) 0.0 Abs Immat Gran (auto) 0.08 H Absolute Neuts (auto) 6.9 Absolute Nucleated RBC 0.000 Nucleated RBC % (auto) 0.0 PT 15.1 H INR 1.3 H Sodium 139 Potassium 3.5 D Chloride 104 Carbon Dioxide 28 Anion Gap 11 L BUN 14 Creatinine 0.65 Estim Creat Clear Calc 41.6 Estimated GFR > 60 Random Glucose 80 Calcium 8.0 L D Magnesium 1.4 L* Total Bilirubin 0.6 AST 122 H ALT 84 H Alkaline Phosphatase 96 Total Creatine Kinase 52 Troponin I High Sens 56.5 H* 149.1 H* D B-Natriuretic Peptide Total Protein 4.6 L Albumin 1.9 L TSH 0.83 Urine Color Dark Yellow Urine Appearance Cloudy Urine pH 6.5 Ur Specific [place] 1.015 Urine Protein 30 (1+) H Urine Glucose (UA) Negative Urine Ketones 15 Urine Blood Small (1+) H Urine Nitrite Negative Ur Leukocyte Esterase Large (3+) H Urine RBC 6-10 H Urine WBC >50 H Ur Squamous Epith Cells 0-2 Urine Bacteria Trace Hyaline Casts 0-2 02/04/25 02/04/25 08:18 09:52 WBC RBC Hgb Hct MCV MCH MCHC RDW Plt Count MPV Immature Gran % (Auto) Neut % (Auto) Lymph % (Auto) [place] % (Auto) Eos % (Auto) Baso % (Auto) Lymph # (Auto) [place] # (Auto) Eos # (Auto) Baso # (Auto) Abs Immat Gran (auto) Absolute Neuts (auto) Absolute Nucleated RBC Nucleated RBC % (auto) PT INR Sodium Potassium Chloride Carbon Dioxide Anion Gap BUN Creatinine Estim Creat Clear Calc Estimated GFR Random Glucose Calcium Magnesium Total Bilirubin AST ALT Alkaline Phosphatase Total Creatine Kinase Troponin I High Sens 164.1 H* B-Natriuretic Peptide 615 H Total Protein Albumin TSH Urine Color Urine Appearance Urine pH Ur Specific [place] Urine Protein Urine Glucose (UA) Urine Ketones Urine Blood Urine Nitrite Ur Leukocyte Esterase Urine RBC Urine WBC Ur Squamous Epith Cells Urine Bacteria Hyaline Casts Assessment and Plan (1) Acute exacerbation of CHF (congestive heart failure): Qualifiers: Heart failure type: systolic Qualified Code(s): I50.23 - Acute on chronic systolic (congestive) heart failure Status: Acute Plan [age] year female presenting with fall and concern for congestive heart failure. Overall does not appear to be significantly volume overloaded currently. Would favor starting her on low-dose diuretics 20 mg daily. Chest x-ray findings are little suspicious for heart failure but she was taking fludrocortisone which can lead to volume retention and fluid overload. In any case gentle diuresis with oral Lasix 20 mg daily. Unsure why she is on fludrocortisone currently. If this is for low blood pressure then potentially has to be stopped. If there is other reason then please discuss with endocrinology before stopping it. Thank you for allowing me to participate in the care of your patient. Please feel free to contact me if you have any questions. Procedures Date of Service Date of Service: 02/04/25
--- NOTE | 2025-02-04 13:00 | CA_ITS ---
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 There is normal left ventricular wall thickness. The left ventricular systolic function is mildly decreased. The visually estimated ejection fraction is between 40-45%. - Normal right ventricular cavity size. There is mildly decreased right ventricular systolic function. Findings Procedure Information Contrast agent, definity, is being given per protocol without apparent complications. The study quality is limited by patients body habitus. Left Ventricle Normal left ventricular cavity size. There is normal left ventricular wall thickness. The left ventricular systolic function is mildly decreased. The visually estimated ejection fraction is between 40-45%. There is moderate global hypokinesis. Diastolic function is indeterminate on the basis of available data. Right Ventricle Normal right ventricular cavity size. There is mildly decreased right ventricular systolic function. Atria The left atrium is normal in size. Aortic Valve The aortic valve was not well visualized. There is no aortic valve stenosis. There is no aortic valve regurgitation. Mitral Valve There is severe mitral annular calcification. There is no mitral valve regurgitation. There is no mitral valve stenosis. Pulmonic Valve The pulmonic valve is likely normal. There is trace pulmonic valve regurgitation. Tricuspid Valve Normal tricuspid valve structure. There is trace tricuspid valve regurgitation. Normal right atrial pressure. There is no evidence of pulmonary hypertension. Great Vessels All visible segments of the aorta are normal in size. The visualized portions of the pulmonary artery and branches are normal. Venous The inferior vena cava is normal in size and collapses greater than 50% with inspiration. Pericardium/Pleural There is no evidence of pericardial effusion. Prior Study Comparison No prior study available for comparison. Measurements 2D Linear Measurements IVSd: 0.67 0.6-0.9/0.6-1.0 cm LVIDd: 4.48 3.9-5.3/4.2-5.9 cm LVIDd Index: 2.95 2.4-3.2/2.2-3.1 cm/m2 LVIDs: 3.32 2.0-3.6 cm LVPWd: 0.71 0.7-1.1 cm LV Mass: 115.13 67-162/88-224 g LV Mass Index: 75.74 43-95/49-115 g/m2 LVOT Diam: 1.80 3.0+(-)1.3 cm 2D Systolic Function EF 4C: 41.00 >55% EF 2C: 43.00 >55% EF BiP: 40.80 >55% Mitral Valve MV VTI: 0.19 MV Pk John: 0.95 MV Mn John: 0.54 MV Pk Grad: 4.00 MV Mn Grad: 1.00 MV Pk E: 1.00 MV PK A: 0.57 MV Decel Time: 171.00 E/A: 1.80 E'Lateral: 4.35 E'Medial: 3.37 E/E' Med: 29.70 E/E' Lat: 23.00 PHT: 50.00 MVA PHT: 4.40 MVA Continuity: 1.60 Decel [place]: 5.84 Aortic Valve AoV Pk John: 0.96 AoV Mn John: 0.59 AoV VTI: 0.15 AoV Pk Grad: 4.00 Aov Mn Grad: 2.00 JOSE Cont.VTI: 1.94 LVOT LVOT Pk John: 0.78 LVOT Mn John: 0.46 LVOT VTI: 0.12 LVOT Pk Grad: 2.00 LVOT Mn Grad: 1.00 LVOT Diam: 1.80 LVOT Area: 2.54 Diastolic Function MV Pk E: 1.00 MV Pk A: 0.57 E/A: 1.80 E'Medial: 3.37 E/E' Med: 29.70 E' Laterial: 4.35 E/E' Lat: 23.00 Right Ventricle TAPSE (mm): 15.00 TVS' John: 8.27 Tricuspid Valve TR Pk John: 2.21 TR Pk Grad: 20.00 RA Press: 3.00 RVSP: 23.00 Great Vessels Aorta Sinus of Valsalva: 2.83 2.0-3.5 cm Updated in Other Vendor System with Status of Final Negro Gomez MD electronically signed on 02/04/2025 9:58:30 PM with status of Final
[2025-02-04] MEDS: Magnesium Sulfate/H2O 2 GM/50 ML PIGGYBACK IV (13:12)
[2025-02-04 14:52] LABS: Troponin-I High Sensitivity 113.4 ng/L (<3.5-17.0)
--- NOTE | 2025-02-04 15:29 | PM.EVENT ---
Event Note Date of Service: 02/05/25 Event Note: This patient is seen and examined with APC. Lab imaging, EKG reviewed. Physical exam and assessment and plan coordinated in APCs note, Agree with the plan in addition: Patient was admitted to the hospital status post fall-patient history, lab imaging reviewed with the APC , assessment and plan coordinated in H&P note of apc In addition Patient has multiple electrolytic abnormalities with with possible mild CHF No hypoxia, resting comfortably Mild elevated troponin possibly due to demand Hypokalemia and hypomagnesemia repleted-monitor renal function electrolytes UTI-on Ceftin, no sepsis at present. CLL recently on chemo -? Time Spent With Patient Time: Total time managing care of this patient today ____ minutes.
[2025-02-04] MEDS: 0.9 % Sodium Chloride Flush 3 ML SYRINGE IVFLUSH ×2 (17:01→22:05)
[2025-02-04] MEDS: Sennosides 8.6 MG TABLET 17.2 MG PO (22:03)
[2025-02-04] MEDS: polyethylene glycoL 3350 17 GM POWD.PACK PO (22:04)
[2025-02-04] MEDS: Bacitracin Oint 14 GM TUBE 1 APPL TOPICAL (22:11)
[2025-02-05] VITALS (7 sets, daily range): BP systolic 100–140; BP diastolic 51–67; PULSE 72–87; RESP 18–20; TEMP 36.3–37.3; O2SAT 93–98; BMI 15.1
[2025-02-05] MEDS: cefuroxime axetiL 250 MG TABLET PO ×2 (02:14→11:35)
[2025-02-05] MEDS: Metoclopramide HCl 10 MG/2 ML VIAL IVPUSH (02:42)
--- NOTE | 2025-02-05 08:17 | MHC.CM.PN ---
Addendum entered by Zulema Calero 02/05/25 12:22: [facility] supplied CM with a copy of the HCP, naming Lesley as the Agent. Addendum entered by Zulema Calero 02/05/25 08:22: Prior to SNF/STR, Patient lived alone in a house. Original Note: CM met with Patient at bedside and addressed IMM with her; original was given to Patient and a copy has been placed on the chart. Prior to [facility], Patient was at STR @ [facility] and it is Patient's goal to return there to complete STR. CM has initiated and will follow for dc planning. PCP/DINING ROOM CASHIER is Virginia Nance and Patient will require BLS back to STR @ time of dc. MARIA L has asked [facility] to fax a copy of Patient's HCP to CM.
[2025-02-05] MEDS: Potassium Chloride ER 20 MEQ TAB.ER.PRT PO (10:27)
[2025-02-05] MEDS: Furosemide 20 MG/2 ML VIAL IVPUSH (10:27)
[2025-02-05] MEDS: Magnesium Oxide 400 MG TABLET PO (10:27)
[2025-02-05] MEDS: Bacitracin Oint 14 GM TUBE 1 APPL TOPICAL ×2 (10:28→22:19)
[2025-02-05] MEDS: 0.9 % Sodium Chloride Flush 3 ML SYRINGE IVFLUSH ×3 (10:28→22:19)
--- NOTE | 2025-02-05 12:26 | MHC.CLN ---
PT IS MODERATELY MALNOURISHED PT WITH MILDLY DEPLETED SUBCUTANEOUS FAT AND MUSCLE MASS WITH BMI 15 AND INCREASED NUTRITION RISK R/T PRESSURE INJURY NO PREVIOUS WT HX AVAILABLE PT REPORTS WT LOSS OF UNKNOWN AMOUNT R/T RECENT LYMPHOMA DX WITH CHEMO DIET RX; CARDIAC CHOPPED WITH 1500ML FLUID RESTRICTION-RECOMMEND LIBERALIZING DIET R/T MALNUTRITION AND ADVANCED AGE RECOMMEND SWITCHING ENSURE MAX TO ENSURE BID TO PROVIDE 700KCALS, 40G PROTEIN AND PROMOTE WOUND HEALING MONITOR PO INTAKE AND ENCOURAGE SUPPLEMENTS SEE FULL CLINICAL NUTRITION ASSESSMENT
--- NOTE | 2025-02-05 13:29 | HO.PM.IMPN ---
Subjective Subjective Date of Service: 02/05/25 Interval History: ?chf ,multiple electrolytic abnormalities Review of Systems seems comfortable breathing denies any chest pain Physical Exam Vital Signs: Vital Signs: Last Vital Signs Temp 98.9 F 02/05/25 11:40 Pulse 83 02/05/25 11:40 Resp 20 02/05/25 11:40 BP 126/67 02/05/25 11:40 Pulse Ox 96 02/05/25 11:40 O2 Del Method Room Air 02/05/25 11:40 BMI result Body Mass Index 15.1 Appearance: Alert.? Oriented , frail, chronically sick looking. cvs: rrr, [id number] . res: air entry fair ,somewhat diminshed . abd:soft ,nt, bs present. ext pulses present , no cyanosis . neuro: nonfocal. Objective Data Active Medications Acetaminophen (Acetaminophen 325 Mg Tablet) 650 mg PO Q6H PRN PRN Reason: Pain, Mild 1-3,fever,headache Bacitracin (Bacitracin Oint 14 Gm Tube) 1 appl TOPICAL BID [facility]; Protocol Last Admin: 02/05/25 10:28 Dose: 1 appl Documented By: ADRIANA Calcium Carbonate (Calcium Carbonate 750 Mg Tab.Chew) 750 mg PO Q4H PRN PRN Reason: Heartburn Cefuroxime Axetil (Cefuroxime Axetil 250 Mg Tablet) 250 mg PO Q12H [facility] Last Admin: 02/05/25 11:35 Dose: 250 mg Documented By: ADRIANA Furosemide (Furosemide 20 Mg/2 Ml Vial) 20 mg IVPUSH DAILY [facility]; Protocol Last Admin: 02/05/25 10:27 Dose: 20 mg Documented By: ADRIANA Magnesium Hydroxide (Milk Of Magnesia 30 Ml Oral.Susp) 30 ml PO DAILY PRN PRN Reason: Constipation Magnesium Oxide (Magnesium Oxide 400 Mg Tablet) 400 mg PO DAILY [facility] Last Admin: 02/05/25 10:27 Dose: 400 mg Documented By: ADRIANA Melatonin (Melatonin 3 Mg Tablet) 6 mg PO BEDTIME PRN PRN Reason: Insomnia Metoclopramide HCl (Metoclopramide Hcl 10 Mg/2 Ml Vial) 10 mg IVPUSH Q6H PRN PRN Reason: Nausea and Vomiting Last Admin: 02/05/25 02:42 Dose: 10 mg Documented By: NIR Polyethylene Glycol (Polyethylene Glycol 3350 17 Gm Powd.Pack) 17 gm PO DAILY PRN PRN Reason: Constipation Last Admin: 02/04/25 22:04 Dose: 17 gm Documented By: NIR Potassium Chloride (Potassium Chloride Er 20 Meq Tab.Er.Prt) 20 meq PO DAILY [facility] Last Admin: 02/05/25 10:27 Dose: 20 meq Documented By: ADRIANA Senna (Sennosides 8.6 Mg Tablet) 17.2 mg PO BEDTIME [facility] Last Admin: 02/04/25 22:03 Dose: 17.2 mg Documented By: NIR Sodium Chloride (0.9 % Sodium Chloride Flush 3 Ml Syringe) 3 ml IVFLUSH QSHIFT [facility] Last Admin: 02/05/25 10:28 Dose: 3 ml Documented By: ADRIANA Labs 02/04/25 01:51 02/04/25 01:51 Microbiology Microbiology Results: Microbiology 02/04/25 Unknown Urine Culture - Preliminary Urine clean catch - Clean Catch Midstream Culture in progress. Assessment and Plan (1) Hypomagnesemia: Status: Acute (2) Afib: Status: Acute Assessment and Plan: Acute CHF exacerbation with large B pleural effusions, no hypoxia BNP 615 LFTs slightly elevated (do not suspect shock liver) pt is on amiodorone . Telemetry mild elevated trop in setting of chf. Echo :Normal left ventricular cavity size. There is normal left ventricular wall thickness. The left ventricular systolic function is mildly decreased. The visually estimated ejection fraction is between 40-45%.Normal right ventricular cavity size. There is mildly decreased right ventricular systolic function. plan: Cardiology consulted, pt follows with Dr. Gutierrez at [facility] :Troponins elevated likely due to ischemic demand, 49 - 149- 160 non specific T wave changes on ECG.echo ef is 40% which seems similar -as per [facility] records. ? if Pleural effusions -?unclear etiology: As per [facility] records: Pleural fluid studies show?transudative fluid?with?no organisms, no evidence of infection. Cytology was sent which was negative for lymphoma but insufficient sample. oncolgy eval added.? Acute Hypokalemia/hypomagnesemia Labs from today pending Hypokalemia improved Continue to trend and cardiology -? Mild component of CHF/switched to low-dose Lasix. Telemetry AFIB tsh normal continue Amiodorone /eliquis. LFTs elevated likely secondary to CHF or CLL, trend Sacral Decubitus Ulcer Unclear date of etiology, pt is underweight with poor appetite, living with CLL dx Nutritional consult ordered ensure added Wound care consult ordered moderate protein calorie malnutrition: BMI 15.1 Nutritional consult ordered ensure added Wound care consult ordered HX of CVA : overall is weak, malnourished dealing with CLL but no obvious deficits pt eval CLL recently on chemo Per pt's son, her oncology in [facility] oncology eval added UTI suspected UA looks suspicious for UTI Pt was started on Ceftin in ED will continue and follow culture No olguin indicated as pt is able to void Hypothyrooidism Checking TSH with reflex Continue current dose of levothyroxine, await lab results HLD Atorvastatin 20 mg HS, LFTs mildy elevated, will hold . Transaminitis Likely secondary to CHf exacerbation vs CLL hold statin Quality Stroke Does the patient have a stroke diagnosis?: No Reason for No Anti-thrombotic by Day Two: N/A - Med Ordered VTE Prior VTE?: No VTE Risk Level:: Medical - moderate - high VTE Device Contraindication: N/A - Device Ordered VTE Drug Contraindication: N/A - Med Ordered
--- NOTE | 2025-02-05 14:45 | MHC.SL.SWA ---
Speech Pathologist Impression: Risk of Aspiration Due to: Medically Fragile Poor PO Intake Dysphasia Diet Status: Liquid Consistency and Strategies for Safe Swallow: Liquid Intake Recommendation: Thin Liquid Intake Strategies: Small Sips Solid Food Consistency: Dietary Recommendations: Chopped/Advanced (NDD3) Additional Modifications to Solid Foods: Patient is visually impaired, weak, will require assistance with tray, opening all items, orienting to food and drink on tray as well as cutlery, prep of items as needed (e.g. adding syrup or gravy, etc.). Oral Medication Intake: Whole with Puree Please contact the pharmacy regarding appropriate crushable or liquid drug formulations that are available whenever modified delivery is recommended. Compensatory Strategies and Precautions to be Taken for Safe Swallow: Sitting Upright (90 deg) Liquids from Cup Liquids from Straw Small Bites and Sips Alternate Liquids/Solids Supervision While Eating and Drinking for Safe Swallow: Total Supervision (1:1) Foods to Avoid: uncut, too large pieces of food. Swallowing Recommended Treatments: Compens. Strategy Educat. Recommendation for Speech: Inpatient Speech Therapy Comment: Patient presents with generalized weakness, frailty, poor po intake, visual impairment (macular degeneration) as risks for aspiration, however oral motor function, swallow mostly WFL. Recommend DOWNGRADE diet to Chopped/Advanced (NDD3) continue on Thin liquids, pills whole in puree. Patient will require assistance/supervision at meals due to visual impairment and generalized weakness (E.g. open and prepare all foods and liquids on tray, orient patient to tray location of cutlery, provide assistance and encouragement as needed). MD/RD notified of recommendation by secure text, RN in person. PRODUCTION MACHINE SHOP SUPERVISOR will continue to follow, assure toleration of diet. Frequency/Duration: Date Range for Service Req: Timeline to reassess: Home Aide Clinican/Clinical Fellow: No Supervisory Statement: I have reviewed and agree with the student/clinical fellow's documentation: N/A Speech Language Pathologist: Chloe Ballard M.A., CCC-PRODUCTION MACHINE SHOP SUPERVISOR
[2025-02-05] MEDS: Amiodarone HCL 200 MG TABLET PO (14:46)
[2025-02-05] MEDS: Levothyroxine Sodium 125 MCG TABLET PO (14:46)
[2025-02-05] MEDS: predniSONE 1 MG TABLET 4 MG PO (14:46)
[2025-02-05] MEDS: Escitalopram Oxalate 20 MG TABLET PO (14:46)
[2025-02-05] MEDS: Apixaban 2.5 MG TABLET PO ×2 (14:46→22:19)
[2025-02-05] MEDS: Ascorbic Acid 250 MG TABLET PO (14:46)
[2025-02-05 16:10] LABS: Alanine Aminotransferase 74 U/L (0-31); Albumin Level 1.3 g/dL (3.5-5.0); Alkaline Phosphatase 62 U/L (39-117); Anion Gap 8 (12-20); Aspartate Amino Transferase 102 U/L (5-31); Bilirubin Total 0.3 mg/dL (0.0-1.0); Blood Urea Nitrogen 12 mg/dL (9-16); Calcium 6.9 mg/dL (8.4-10.2); Carbon Dioxide 28 mmol/L (22-29); Chloride 105 mmol/L (96-108); Estimated Glomerular Filt Rate > 60; Glucose Random 150 mg/dL (60-115); Magnesium 1.4 mg/dL (1.6-2.6); Potassium 5.2 mmol/L (3.3-5.1); Sodium 136 mmol/L (135-145)
[2025-02-05] MEDS: Magnesium Sulfate/H2O 2 GM/50 ML PIGGYBACK IV (17:55)
[2025-02-05] MEDS: Albumin Human 25 % 100 ML IV (19:25)
--- NOTE | 2025-02-05 22:48 | P.CNHO_ITS ---
Subjective - Subjective Chief complaint: Consult for: CLL. Patient: new to practice Consult date: 02/05/25 Requesting Physician: Dr. Marie. Primary Care Provider: Virginia Nance Family Provider: Virginia Nance Medical Summary: DIAGNOSIS Antenna Specialist Utilized?: No - New Zealander Speaking HPI - Consult Narrative Narrative: Monse Rowley is a 89 year old lady, with history of Lymphoma diagnosed 2023 currently on chemotherapy, , recent weight loss and frailty due to lymphoma diagnosis, systolic CHF and presents to [facility] status post fall at [facility]. Pt was trying to turn in bed and fell through the bed but was able to call help. She does not recall loss of consciousness. Patient is currently alert and orientated x3 moving all extremities. She currently has abrasions on the left cheek and behind the neck area. CT of the head and cervical spine are all negative for any acute issues. In addition chest x-ray noted large bilateral pleural effusions. Wrist xrays of R wristy also done and note osteogenerative changes byt no acute findings. Troponins have risen from 50 to 149 to now 160 during her time in the emergency department. EKG is negative for any ischemic changes but notes a Sinus rhythm, first-degree AV block, heart rate 75, no ST segment depression, nonspecific T-wave changes in V5 V6, QTC 413. Cardiology had been contacted by ED staff prior to admission. Patient denies any chest pain or SOB at rest. Pt is not currently requiring oxygen as well. She received 10 IV lasix in ED. She was hypokalmeic on admission, 2.7 but with supplementation, this has been corrected. She is frail with significant weight loss since 2023, of over 65 lb secondary to a diagnosis of lymphoma. Patient was to see the oncologist today at [facility] to discuss resumption of chemotherapy, however her son, who is also the healthcare proxy, feels that chemo likely will not resume. Reviewed advanced directives patient is currently a DNR DNI. Pt follows with Dr Gutierrez at [facility]. Last echo was 11/06/2023 per pt's daughter. Medical History:) Hypothyroidism, GERD, CVA, B maculardegenerative changes,depression, osteoarthritis. Hx of detention use of blood thinners Hyperlipidemia CLL (chronic lymphocytic leukemia) Acute exacerbation of CHF (congestive heart failure) Hypertension Hypothyroidism CVA (cerebral vascular accident) Cognitive capacity: Alert and orientated X3 SURGICAL HISTORY: 1. History of cholecystectomy, 2. Full hysterectomy and 3. R mastectomy due to breast cancer age 60. Review of Systems: She has felt fatigued. No fever chills no night sweats. Appetite is not that great. She has lost weight. She denies headache. She feels dizzy. Pt denies chest pain, SOB at rest. No abdominal pain, N/V, heartburn or indigestion. Bowels are working without any gross blood in it. No dysuria or hematuria. Complains of lower leg pain, Has had joint pain. Feels weak all over. Is rather depressed. All other systems are reviewed and are negative. Review of Systems - Constitutional Reports no additional constitutional complaints, Reports anorexia, Reports difficulty sleeping, Reports fatigue, Reports lack of energy, Reports poor appetite, Reports weakness, Reports weight loss - Eyes Reports no additional eye complaints - ENT Reports no additional ear, nose, mouth, and throat complaints - Cardiovascular Reports no additional cardiovascular complaints - Respiratory Reports no additional respiratory complaints - Gastrointestinal Reports no additional gastrointestinal complaints - Genitourinary Reports no additional female genitourinary complaints - Musculoskeletal Reports no additional musculoskeletal complaints - Integumentary/Breasts Skin/Breast: Reports no additional skin complaints - Neurologic Reports no additional neurologic complaints - Psychiatric Reports no additional psychiatric complaints - Endocrine Reports no additional endocrine complaints - Hematologic/Lymphatic Reports no additional hematologic/lymphatic complaints - Allergic/Immunologic Reports no additional allergic/immunologic complaints Oncology Screenings - ECOG Performance Status ECOG Performance Status: 2 [facility] Medical History: Medical History (Last Updated 02/04/25 @ 12:05 by NANDINI Anderson-ALAN) Acute exacerbation of CHF (congestive heart failure) CLL (chronic lymphocytic leukemia) CVA (cerebral vascular accident) Hx of detention use of blood thinners Hyperlipidemia Hypertension Hypothyroidism Functional capacity: wheelchair bound Patient : No Social History: Social History (Last Updated 02/04/25 @ 11:42 by NANDINI Anderson-ALAN) Living Situation History: Household Members: None Housing: House Tobacco History: Patient Tobacco Use Status: Never used Tobacco Occupation Assessmet: service: No - Travel History Ebola Risk: Travel/Contact With Anyone From Affected Area/s: No Has Patient Experienced Ebola Symptoms: No Home Medications and Allergies Current Medications: Current Medications Acetaminophen (Acetaminophen 325 Mg Tablet) 650 mg PO Q6H PRN PRN Reason: Pain, Mild 1-3,fever,headache Amiodarone HCl (Amiodarone Hcl 200 Mg Tablet) 200 mg PO DAILY [facility] Last Admin: 02/05/25 14:46 Dose: 200 mg Apixaban (Apixaban 2.5 Mg Tablet) 2.5 mg PO BID [facility] Last Admin: 02/05/25 22:19 Dose: 2.5 mg Ascorbic Acid (Ascorbic Acid 250 Mg Tablet) 250 mg PO DAILY [facility] Last Admin: 02/05/25 14:46 Dose: 250 mg Bacitracin (Bacitracin Oint 14 Gm Tube) 1 appl TOPICAL BID [facility]; Protocol Last Admin: 02/05/25 22:19 Dose: 1 appl Bisacodyl (Bisacodyl 10 Mg Supp.Rect) 10 mg UT DAILY PRN PRN Reason: 3 days with no BM Calcium Carbonate (Calcium Carbonate 750 Mg Tab.Chew) 750 mg PO Q4H PRN PRN Reason: Heartburn Cefuroxime Axetil (Cefuroxime Axetil 250 Mg Tablet) 250 mg PO Q12H [facility] Last Admin: 02/05/25 11:35 Dose: 250 mg Escitalopram Oxalate (Escitalopram Oxalate 20 Mg Tablet) 20 mg PO DAILY [facility] Last Admin: 02/05/25 14:46 Dose: 20 mg Furosemide (Furosemide 20 Mg Tablet) 20 mg PO DAILY [facility]; Protocol Albumin Human (Kedbumin 25 %) 100 mls @ 100 mls/hr IV Q6H [facility] Stop: 02/06/25 00:44 Last Infusion: 02/05/25 20:25 Dose: Infused Levothyroxine Sodium (Levothyroxine Sodium 125 Mcg Tablet) 125 mcg PO DAILY@0600 [facility] Last Admin: 02/05/25 14:46 Dose: 125 mcg Magnesium Hydroxide (Milk Of Magnesia 30 Ml Oral.Susp) 30 ml PO DAILY PRN PRN Reason: Constipation Magnesium Oxide (Magnesium Oxide 400 Mg Tablet) 400 mg PO DAILY [facility] Last Admin: 02/05/25 10:27 Dose: 400 mg Melatonin (Melatonin 3 Mg Tablet) 6 mg PO BEDTIME PRN PRN Reason: Insomnia Metoclopramide HCl (Metoclopramide Hcl 10 Mg/2 Ml Vial) 10 mg IVPUSH Q6H PRN PRN Reason: Nausea and Vomiting Last Admin: 02/05/25 02:42 Dose: 10 mg Omeprazole (Omeprazole 20 Mg Capsule.Dr) 20 mg PO DAILY@0630 [facility] Polyethylene Glycol (Polyethylene Glycol 3350 17 Gm Powd.Pack) 17 gm PO DAILY PRN PRN Reason: Constipation Last Admin: 02/04/25 22:04 Dose: 17 gm Prednisone (Prednisone 1 Mg Tablet) 4 mg PO DAILY [facility] Last Admin: 02/05/25 14:46 Dose: 4 mg Prochlorperazine Maleate (Prochlorperazine Maleate 5 Mg Tablet) 5 mg PO Q6H PRN PRN Reason: nausea Senna (Sennosides 8.6 Mg Tablet) 17.2 mg PO BEDTIME [facility] Last Admin: 02/05/25 19:26 Dose: Not Given Sodium Chloride (0.9 % Sodium Chloride Flush 3 Ml Syringe) 3 ml IVFLUSH QSHIFT [facility] Last Admin: 02/05/25 22:19 Dose: 3 ml Home Medications ?Medication ?Instructions ?Recorded ?Confirmed ?Type acetaminophen 325 mg tablet 650 mg PO Q6H PRN Mild Pain (Scale 02/04/25 02/04/25 History Score 1-4) amiodarone 200 mg tablet 200 mg PO DAILY 02/04/25 02/04/25 History apixaban 2.5 mg tablet (Eliquis) 2.5 mg PO BID 02/04/25 02/04/25 History ascorbic acid (vitamin C) 250 mg 250 mg PO DAILY 02/04/25 02/04/25 History tablet atorvastatin 20 mg tablet 20 mg PO BEDTIME 02/04/25 02/04/25 History bisacodyl 10 mg rectal suppository 10 mg UT DAILY PRN 3 days with no 02/04/25 02/04/25 History (Dulcolax (bisacodyl)) BM cholecalciferol (vitamin D3) 25 25 mcg PO DAILY 02/04/25 02/04/25 History mcg (1,000 unit) tablet escitalopram oxalate 20 mg tablet 20 mg PO DAILY 02/04/25 02/04/25 History esomeprazole magnesium 40 mg 40 mg PO DAILY 02/04/25 02/04/25 History capsule,delayed release fludrocortisone 0.1 mg tablet 0.1 mg PO BID 02/04/25 02/04/25 History levothyroxine 125 mcg tablet 125 mcg PO DAILY 02/04/25 02/04/25 History multivitamin 1 tab PO DAILY 02/04/25 02/04/25 History potassium chloride 20 mEq 20 meq PO DAILY 02/04/25 02/04/25 History tablet,extended release prednisone 1 mg tablet 4 mg PO DAILY 02/04/25 02/04/25 History prochlorperazine maleate 5 mg 5 mg PO Q6H PRN nausea 02/04/25 02/04/25 History tablet Allergies Allergy/AdvReac Type Severity Reaction Status Date / Time Iodinated Contrast Media Allergy Fever Verified 02/04/25 01:30 [Contrast Dye] ondansetron [From Zofran] Allergy Headache Verified 02/04/25 01:30 Physical Exam Vital signs: Vital Signs Temp 98.9 F 02/05/25 20:00 Pulse 76 02/05/25 20:00 Resp 18 02/05/25 20:00 BP 129/61 02/05/25 20:00 Pulse Ox 98 02/05/25 20:00 O2 Del Method Room Air 02/05/25 20:00 Intake & Output 02/05/25 02/05/25 02/06/25 06:59 18:59 06:59 Intake Total 371 / 371 Output Total 1 / 751 120 / 120 Balance -1 / -701 251 / 251 Urine Output (Average ml/kg/hr) 0.00 0.00 0.22 Intake: Intake, Oral Amount 221 / 221 Intake, IV Amount 150 / 150 Albumin Human 25 % 100 ml @ 100 100 / 100 mls/hr IV Q6H [facility] Rx#: [id number] Magnesium Sulfate/H2O 2 gm In 50 / 50 50 ml @ 50 mls/hr IV ONCE ONE Rx#:[id number] Output: Output, Urine Amount 0 / 750 120 / 120 Output, Stool Amount 1 / 1 Other: Eating (Feeding) Ability 1:1 Feed Number of Incontinent Voids 1 3 Number of Unmeasured Voids 1 Number of Bowel Movements 1 1 Last Bowel Movement 02/05/25 02/05/25 Stool Incontinent Incontinent Stool Amount Moderate Large Stool Color Charcoal Brown Yellow Stool Consistency Liquid Weight 44.906 kg Weight 44.906 kg - Constitutional Present: mild distress - Routine HEENT Exam Head: Present: normal inspection, normocephalic Eye: Present: normal appearance ENT: Present: mucous membranes moist - Routine Neck Exam Present: supple - Routine Respiratory Exam Present: decreased breath sounds, CTAB - Routine Cardiovascular Exam Cardiovascular: Present: RRR, S1, S2 - Routine Abdominal Exam Present: nontender - Routine Extremities Exam Present: nontender - Routine Skin Exam Present: intact - Routine Neurological Exam Present: alert, oriented X3 Hem/Onc Consult Result - Labs CBC & Chem 7: 02/04/25 01:51 02/05/25 15:12 Labs: BMP 02/05/25 15:12 Sodium 136 Potassium 5.2 H D Chloride 105 Carbon Dioxide 28 BUN 12 Creatinine 0.73 Calcium 6.9 L D Liver Function 02/05/25 Range/Units 15:12 Total Bilirubin 0.3 (0.0-1.0) mg/dL AST 102 H (5-31) U/L ALT 74 H (0-31) U/L Alkaline Phosphatase 62 (39-117) U/L Albumin 1.3 L (3.5-5.0) g/dL Assessment and Plan Patient Active problem list reviewed?: Yes (1) CLL (chronic lymphocytic leukemia) Status: Acute Assessment and plan: 89-year-old lady, presented to the hospital after a fall, without loss of consciousness. Likely related to frailty. She has been diagnosed with chronic lymphocytic leukemia, recently is being treated with systemic chemotherapy. However undecided if she wishes to continue further treatment. Complicating factors include: CHF, elevated troponin levels. Chest x-ray: Reticular opacities, edema versus infiltrate versus chronic interstitial lung changes. Patient has no shortness of breath, no oxygen desaturation. Patient is able to lie supine with oxygen saturation 99%. Noted to have bilateral pleural effusions. Pleural fluid studies show?transudative fluid?with?no organisms, no evidence of infection. Cytology was sent which was negative for lymphoma but insufficient sample. So likely consistent with CHF. Being treated with gentle diuresis. PLAN: I have requested records from [facility]. Meanwhile, her electrolytes and minerals are being corrected. Her albumin is 1.3, indicative of very poor nutrition. Ensure supplementation started. Would continue supportive care for now. Thank you for the consult, I will follow along with you, CC: Dr. Virginia Nance. - Time Spent With Patient Time Spent with Patient (in minutes): 30
[2025-02-05 23:49] LABS: Lactate Dehydrogenase 480 U/L (122-220)
[2025-02-06] MEDS: cefuroxime axetiL 250 MG TABLET PO ×2 (00:56→13:31)
[2025-02-06] MEDS: Albumin Human 25 % 100 ML IV (00:56)
[2025-02-06 03:30] VITALS: BP 155/70; PULSE 76; RESP 18; TEMP 36.7; O2SAT 97
[2025-02-06] MEDS: Omeprazole 20 MG CAPSULE.DR PO (05:17)
[2025-02-06] MEDS: Levothyroxine Sodium 125 MCG TABLET PO (05:17)
[2025-02-06 07:47] VITALS: BP 156/72; PULSE 78; RESP 20; TEMP 36.3; O2SAT 98
--- NOTE | 2025-02-06 08:19 | P.PNIM_ITS ---
Subjective Subjective Date of Service: 02/06/25 Interval History: hypomagnesemia,chf Review of Systems denies sob Physical Exam 2 Vital Signs: Vital Signs: Last Vital Signs Temp 97.3 F 02/06/25 07:47 Pulse 78 02/06/25 07:47 Resp 20 02/06/25 07:47 BP 156/72 H 02/06/25 07:47 Pulse Ox 98 02/06/25 07:47 O2 Del Method Room Air 02/06/25 07:47 BMI result Body Mass Index 15.1 Appearance: Alert.? Oriented , frail, chronically sick looking. cvs: rrr, q4h1eetrw . res: air entry fair ,somewhat diminshed . abd:soft ,nt, bs present. ext pulses present , no cyanosis . neuro: nonfocal. Objective Data Active Medications Acetaminophen (Acetaminophen 325 Mg Tablet) 650 mg PO Q6H PRN PRN Reason: Pain, Mild 1-3,fever,headache Amiodarone HCl (Amiodarone Hcl 200 Mg Tablet) 200 mg PO DAILY [facility] Last Admin: 02/05/25 14:46 Dose: 200 mg Documented By: ADRIANA Apixaban (Apixaban 2.5 Mg Tablet) 2.5 mg PO BID [facility] Last Admin: 02/05/25 22:19 Dose: 2.5 mg Documented By: NIR Ascorbic Acid (Ascorbic Acid 250 Mg Tablet) 250 mg PO DAILY [facility] Last Admin: 02/05/25 14:46 Dose: 250 mg Documented By: ADRIANA Bacitracin (Bacitracin Oint 14 Gm Tube) 1 appl TOPICAL BID [facility]; Protocol Last Admin: 02/05/25 22:19 Dose: 1 appl Documented By: NIR Bisacodyl (Bisacodyl 10 Mg Supp.Rect) 10 mg AR DAILY PRN PRN Reason: 3 days with no BM Calcium Carbonate (Calcium Carbonate 750 Mg Tab.Chew) 750 mg PO Q4H PRN PRN Reason: Heartburn Cefuroxime Axetil (Cefuroxime Axetil 250 Mg Tablet) 250 mg PO Q12H [facility] Last Admin: 02/06/25 00:56 Dose: 250 mg Documented By: NIR Escitalopram Oxalate (Escitalopram Oxalate 20 Mg Tablet) 20 mg PO DAILY [facility] Last Admin: 02/05/25 14:46 Dose: 20 mg Documented By: ADRIANA Furosemide (Furosemide 20 Mg Tablet) 20 mg PO DAILY [facility]; Protocol Levothyroxine Sodium (Levothyroxine Sodium 125 Mcg Tablet) 125 mcg PO DAILY@0600 [facility] Last Admin: 02/06/25 05:17 Dose: 125 mcg Documented By: NIR Magnesium Hydroxide (Milk Of Magnesia 30 Ml Oral.Susp) 30 ml PO DAILY PRN PRN Reason: Constipation Magnesium Oxide (Magnesium Oxide 400 Mg Tablet) 400 mg PO DAILY [facility] Last Admin: 02/05/25 10:27 Dose: 400 mg Documented By: ADRIANA Melatonin (Melatonin 3 Mg Tablet) 6 mg PO BEDTIME PRN PRN Reason: Insomnia Metoclopramide HCl (Metoclopramide Hcl 10 Mg/2 Ml Vial) 10 mg IVPUSH Q6H PRN PRN Reason: Nausea and Vomiting Last Admin: 02/05/25 02:42 Dose: 10 mg Documented By: NIR Omeprazole (Omeprazole 20 Mg Capsule.) 20 mg PO DAILY@0630 [facility] Last Admin: 02/06/25 05:17 Dose: 20 mg Documented By: NIR Polyethylene Glycol (Polyethylene Glycol 3350 17 Gm Powd.Pack) 17 gm PO DAILY PRN PRN Reason: Constipation Last Admin: 02/04/25 22:04 Dose: 17 gm Documented By: NIR Prednisone (Prednisone 1 Mg Tablet) 4 mg PO DAILY [facility] Last Admin: 02/05/25 14:46 Dose: 4 mg Documented By: ADRIANA Prochlorperazine Maleate (Prochlorperazine Maleate 5 Mg Tablet) 5 mg PO Q6H PRN PRN Reason: nausea Senna (Sennosides 8.6 Mg Tablet) 17.2 mg PO BEDTIME [facility] Last Admin: 02/05/25 19:26 Dose: Not Given Documented By: NIR Non-Admin Reason: bowel movements x4 today Sodium Chloride (0.9 % Sodium Chloride Flush 3 Ml Syringe) 3 ml IVFLUSH QSHIFT [facility] Last Admin: 02/05/25 22:19 Dose: 3 ml Documented By: NIR Labs 02/04/25 01:51 02/06/25 08:21 Labs: Laboratory Results - last 24 hr 02/05/25 02/05/25 15:12 15:12 Anion Gap 8 L Estim Creat Clear Calc 37.0 Estimated GFR > 60 Random Glucose 150 H Calcium 6.9 L D Magnesium Cancelled 1.4 L* Total Bilirubin 0.3 AST 102 H ALT 74 H Alkaline Phosphatase 62 Lactate Dehydrogenase 480 H Total Protein 3.0 L Albumin 1.3 L Microbiology Microbiology Results: Microbiology 02/04/25 Unknown Urine Culture - Preliminary Urine clean catch - Clean Catch Midstream Culture in progress. Assessment and Plan (1) Hypomagnesemia: Status: Acute (2) Transaminitis: Status: Acute Assessment and Plan: Acute CHF exacerbation with large B pleural effusions, no hypoxia BNP 615 LFTs slightly elevated (do not suspect shock liver) pt is on amiodorone . Telemetry mild elevated trop in setting of chf. Echo :Normal left ventricular cavity size. There is normal left ventricular wall thickness. The left ventricular systolic function is mildly decreased. The visually estimated ejection fraction is between 40-45%.Normal right ventricular cavity size. There is mildly decreased right ventricular systolic function. plan: Cardiology consulted, pt follows with Dr. Gutierrez at [facility] :Troponins elevated likely due to ischemic demand, 49 - 149- 160 non specific T wave changes on ECG.echo ef is 40% which seems similar -as per [facility] records. ? if Pleural effusions -?unclear etiology: As per [facility] records:Pleural fluid studies show?transudative fluid?with?no organisms, no evidence of infection. Cytology was sent which was negative for lymphoma but insufficient sample. cxr seems ?small effusion, has chest tube for which she need to follow up with Dr Garay ( she have seem pulm in 02/03/25 ) Acute Hypokalemia/hypomagnesemia Labs from today pending Hypokalemia improved Continue to trend and cardiology -? Mild component of CHF/switched to low-dose Lasix. Telemetry AFIB tsh normal continue Amiodorone /eliquis. LFTs elevated likely secondary to CHF or CLL, trend Sacral Decubitus Ulcer Unclear date of etiology, pt is underweight with poor appetite, living with CLL dx Nutritional consult ordered ensure added Wound care consult ordered moderate protein calorie malnutrition: BMI 15.1 Nutritional consult ordered ensure added Wound care consult ordered HX of CVA : overall is weak, malnourished dealing with CLL but no obvious deficits pt eval CLL recently on chemo Per pt's son, her oncology in [facility] oncology eval added UTI suspected UA looks suspicious for UTI Pt was started on Ceftin in ED will continue and follow culture No olguin indicated as pt is able to void Hypothyrooidism Checking TSH with reflex Continue current dose of levothyroxine, await lab results HLD Atorvastatin 20 mg HS, LFTs mildy elevated, will hold . Transaminitis Likely secondary to CHf exacerbation vs CLL hold statin As per the patient's son they decided for hospice meeting (virtual meeting Sunday)- awaiting hospice bed Quality Stroke Does the patient have a stroke diagnosis?: No Reason for No Anti-thrombotic by Day Two: N/A - Med Ordered VTE Prior VTE?: No VTE Risk Level:: Medical - moderate - high VTE Device Contraindication: N/A - Device Ordered VTE Drug Contraindication: N/A - Med Ordered
[2025-02-06] MEDS: predniSONE 1 MG TABLET 4 MG PO (08:47)
[2025-02-06] MEDS: Furosemide 20 MG TABLET PO (08:47)
[2025-02-06] MEDS: Amiodarone HCL 200 MG TABLET PO (08:47)
[2025-02-06] MEDS: Escitalopram Oxalate 20 MG TABLET PO (08:47)
[2025-02-06] MEDS: Ascorbic Acid 250 MG TABLET PO (08:47)
[2025-02-06] MEDS: Magnesium Oxide 400 MG TABLET 800 MG PO (08:47)
[2025-02-06] MEDS: Apixaban 2.5 MG TABLET PO ×2 (08:48→20:19)
[2025-02-06] MEDS: Bacitracin Oint 14 GM TUBE 1 APPL TOPICAL ×2 (08:48→22:34)
--- NOTE | 2025-02-06 08:51 | PM.PNCARD ---
Subjective Subjective Date of Service: 02/05/25 Interval history: The patient was seen and examined at bedside on 02/05/2025. She is denying any respiratory symptoms. No chest discomfort. Physical Exam Vital Signs: Last Vital Signs Temp 97.3 F 02/06/25 07:47 Pulse 78 02/06/25 07:47 Resp 20 02/06/25 07:47 BP 156/72 H 02/06/25 07:47 Pulse Ox 98 02/06/25 07:47 O2 Del Method Room Air 02/06/25 07:47 BMI result Body Mass Index 15.1 GENERAL APPEARANCE: Frail, old lady laying flat in bed. In no distress. NECK: no carotid bruit, no jugular venous distention. SKIN: no suspicious lesions, warm and dry. HEART: no murmurs, regular rate and rhythm. LUNGS: clear to auscultation bilaterally. ABDOMEN: soft, nontender. EXTREMITIES: no edema. PERIPHERAL PULSES: equal. NEUROLOGIC: No gross deficits, AAO X 3 Objective Labs and Meds 02/04/25 01:51 02/05/25 15:12 Lab results: Laboratory Results - last 24 hr 02/05/25 02/05/25 15:12 15:12 Sodium 136 Potassium 5.2 H D Chloride 105 Carbon Dioxide 28 Anion Gap 8 L BUN 12 Creatinine 0.73 Estim Creat Clear Calc 37.0 Estimated GFR > 60 Random Glucose 150 H Calcium 6.9 L D Magnesium Cancelled 1.4 L* Total Bilirubin 0.3 AST 102 H ALT 74 H Alkaline Phosphatase 62 Lactate Dehydrogenase 480 H Total Protein 3.0 L Albumin 1.3 L Progress Note: A&P Assessment and plan (1) Afib: Status: Acute Plan [age] year female on amiodarone and apixaban for atrial fibrillation presenting with shortness of breath. Clinically does not appear to be significantly volume overloaded. Would favor oral diuretics. Fludrocortisone indication has to be cleared and should be stopped if possible because it will lead tomorrow fluid buildup. No further recommendations otherwise. We will follow up PRN. Time Spent With Patient Time: Total time managing care of this patient today ____ minutes. Progress Note: Quality Stroke Does the patient have a stroke diagnosis?: No Reason for No Anti-thrombotic by Day Two: N/A - Med Ordered Procedures Date of Service Date of Service: 02/06/25
[2025-02-06] MEDS: 0.9 % Sodium Chloride Flush 3 ML SYRINGE IVFLUSH ×2 (09:11→17:15)
[2025-02-06 09:12] LABS: Alanine Aminotransferase 69 U/L (0-31); Albumin Level 2.6 g/dL (3.5-5.0); Alkaline Phosphatase 66 U/L (39-117); Aspartate Amino Transferase 84 U/L (5-31); Bilirubin Total 0.9 mg/dL (0.0-1.0); Blood Urea Nitrogen 10 mg/dL (9-16); Creatinine Clr Calc Pharmacy 44.3; Estimated Glomerular Filt Rate > 60; Glucose Random 84 mg/dL (60-115); Total Protein 4.5 g/dL (6.5-8.0)
[2025-02-06 09:21] LABS: Anion Gap 9 (12-20); Calcium 8.2 mg/dL (8.4-10.2); Carbon Dioxide 32 mmol/L (22-29); Chloride 103 mmol/L (96-108); Potassium 3.1 mmol/L (3.3-5.1); Sodium 141 mmol/L (135-145)
[2025-02-06 10:06] LABS: Magnesium 1.8 mg/dL (1.6-2.6)
--- NOTE | 2025-02-06 11:17 | MHC.CM.PN ---
Addendum entered by Zulema Calero 02/06/25 13:34: CM spoke with Son/HCP/Pavan @ CORRECT # [phone]. There is a virtual meeting on 02/09/2025 with the PCP, Son, and Patient to discuss Patient going home to [facility], on Hospice. Son was agreeable to a Hospice referral being made today; CM referred to [facility], in [place]. is aware and CM will follow. Addendum entered by Zulema Calero 02/06/25 13:04: CM left a detailed message for Son/HCP/Pavan @ [phone], requesting the name of the Hospice Agency that he has an appointment with on 02/09/2025 and if the goal is for Hospice in the home setting or in a SNF. MARIA L did explain that if SNF is the plan, because Patient only has Medicare, Patient would need to pay privately for Room & Board. CM awaits a return call from Pavan for clarification. CM will follow. Addendum entered by Zulema Calero 02/06/25 11:21: Per Dr. Marie, Pavan has set up an appointment with a Hospice Agency, through the PCP, for 02/09/2025. CM will follow. Original Note: MARIA L has uploaded the most recent POA/HCP, which names Nicolás/Pavan @ [phone] as the Agent; is aware.
--- NOTE | 2025-02-06 11:41 | MHC.CLN ---
F/U PT IS MODERATELY MALNOURISHED SEE CLINICAL NUTRITION ASSESSMENT DATED 02/05/25 HOSPICE MEETING PENDING PER MD 02/09 DIET RX; 2GM NA CHOPPED-APPROPRIATE RECEIVING ENSURE BID TO PROVIDE 700KCALS, 40G PROTEIN TO PROMOTE WOUND HEALING MONITOR PO INTAKE AND ENCOURAGE SUPPLEMENTS
[2025-02-06 12:00] VITALS: BP 132/63; PULSE 73; RESP 22; TEMP 36.7; O2SAT 96
[2025-02-06] MEDS: Potassium Chloride ER 20 MEQ TAB.ER.PRT PO ×2 (13:31→17:12)
--- NOTE | 2025-02-06 14:21 | MHC.SL.SWA ---
Speech Pathologist Impression: Risk of Aspiration, Oral Phase Dysphagia Risk of Aspiration Due to: Medically Fragile Poor PO Intake Dysphasia Diet Status: No Change Liquid Consistency and Strategies for Safe Swallow: Liquid Intake Recommendation: Thin Liquid Intake Strategies: Small Sips Solid Food Consistency: Dietary Recommendations: Chopped/Advanced (NDD3) Additional Modifications to Solid Foods: Patient is visually impaired, weak, will require assistance with tray, opening all items, orienting to food and drink on tray as well as cutlery, prep of items as needed (e.g. adding syrup or gravy, etc.). Oral Medication Intake: Whole with Puree Please contact the pharmacy regarding appropriate crushable or liquid drug formulations that are available whenever modified delivery is recommended. Compensatory Strategies and Precautions to be Taken for Safe Swallow: Sitting Upright (90 deg) Small Bites and Sips Alternate Liquids/Solids Rate of Ingestion Change Avoid Specific Foods Supervision While Eating and Drinking for Safe Swallow: Total Supervision (1:1) Foods to Avoid: uncut, too large pieces of food. Swallowing Recommended Treatments: Compens. Strategy Educat. Recommendation for Speech: Inpatient Speech Therapy Welder Assistant Clinican/Clinical Fellow: Yes: Agustina Montoya Supervisory Statement: I have reviewed and agree with the student/clinical fellow's documentation: Yes Speech Language Pathologist: Victoria Veliz M.A., CCC-[employer]
[2025-02-06 16:14] VITALS: BP 133/61; PULSE 74; RESP 18; TEMP 37.2; O2SAT 94
--- NOTE | 2025-02-06 16:57 | HO.WOUND ---
Wound Consult: Initial 89yr old?female admitted to [facility] on 02/04/25 - See progress notes and H&P for detailed history.? Wound consult placed for Face neck and buttock wounds POA.? Patient agreeable to assessment and photo documentation.? 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 irregular Esther wound: ? MASD fungal dermatitis No Induration, Fluctuance or Warmth noted Pain: reported Goals of Treatment: ? antifungal treatment - triad and foam dressing Left Hip Etiology: DTI vs Bruise??Present on Admission Wound Bed: intact purple nonblanchable tissue Drainage / Odor: None Edges: ? irregular Esther wound: Intact ? No Induration, Fluctuance or Warmth noted Pain: pain reported Goals of Treatment: Foam dressing to aid in off loading Left Neck Right Forearm and Left face Etiology: ??Skin Tears Wound Bed: face stable with steri strips in place Left neck and right fa recommend xeroform and dry gauze application. Right Lateral Chest Etiology: Device related DTI ?Present on Admission Measurements:see charting for detailed measurment Wound Bed: red maroon purple nonblanchable tissue small openings noted Drainage / Odor: none noted Edges: ? irregular Esther wound: ?red pink slow to ronda tissue No Induration, Fluctuance or Warmth noted Pain: pain reported Goals of Treatment: foam to treat DTI and foam to pad tissue prior to device being secured Recommendations: 1. Turn and Reposition every 2 hours and as needed for patient comfort.? Use pillows or wedges to support off loading positions. 2. Off Load all bony prominences with use of pillows and heel boots if needed.? Apply Preventative foams where needed. ? 3. Monitor for incontinence and moisture control, use barrier creams when needed for prevention and treatment. 4. Provide adequate and supplemental nutrition.? 5. Order low air loss mattress. 6. When applicable maintain blood glucose levels per Providers order. 7. Left Neck and Right Forearm - Cleanse with normal saline, pat dry. ?Apply Xeroform secure with Abd pads, gauze wrap and tape. Change Daily. ?Do not apply tape to patient?s skin.? Avoid Adhesive application to skin - when necessary, apply skin prep prior. Tape gauze to neck do not wrap. 8. Right Lateral Chest - Apply skin prep, cover with foam dressing change every 3 days. Prior to securing device pad tissue with foam dressing. 9. Left Hip - Apply skin prep allow to dry. Cover with foam dressing, change every 3 days. 10. Sacrum and Coccyx - Off Load Pressure with Q2 hr turns and use of pillows - Cleanse with PH balance spray or wipes, pat dry. ?Apply thin layer of Triad to wound bed. Do not remove all of paste between applications as this may cause further skin damage.? Cover with foam dressing to aid in off loading and protection from friction. Change every 5 days and PRN. Re-consult wound care Nurse for wound deterioration or wound changes.
[2025-02-06] MEDS: Nystatin Powder 15 GM BOTTLE 1 APPL TOPICAL ×2 (17:14→20:27)
[2025-02-06] MEDS: Clotrimazole 1 % Cream 15 GM TUBE 1 APPL TOPICAL ×2 (17:14→22:34)
[2025-02-06 20:00] VITALS: BP 128/59; PULSE 72; RESP 15; TEMP 36.7; O2SAT 93
[2025-02-06] MEDS: Sennosides 8.6 MG TABLET 17.2 MG PO (20:18)
[2025-02-06 23:53] VITALS: BP 172/76; PULSE 67; RESP 16; TEMP 36.6; O2SAT 98
[2025-02-07] MEDS: 0.9 % Sodium Chloride Flush 3 ML SYRINGE IVFLUSH ×3 (00:19→16:14)
[2025-02-07] MEDS: cefuroxime axetiL 250 MG TABLET PO ×2 (00:20→13:26)
[2025-02-07 04:00] VITALS: BP 152/72; PULSE 73; RESP 16; TEMP 36.5; O2SAT 95
[2025-02-07] MEDS: Levothyroxine Sodium 125 MCG TABLET PO (06:03)
[2025-02-07 07:26] VITALS: BP 141/66; PULSE 70; RESP 18; TEMP 36.3; O2SAT 98
[2025-02-07] MEDS: Ascorbic Acid 250 MG TABLET PO (08:34)
[2025-02-07] MEDS: Amiodarone HCL 200 MG TABLET PO (08:34)
[2025-02-07] MEDS: Magnesium Oxide 400 MG TABLET 800 MG PO (08:34)
[2025-02-07] MEDS: Furosemide 20 MG TABLET PO (08:34)
[2025-02-07] MEDS: Escitalopram Oxalate 20 MG TABLET PO (08:34)
[2025-02-07] MEDS: Apixaban 2.5 MG TABLET PO ×2 (08:34→21:23)
[2025-02-07] MEDS: Nystatin Powder 15 GM BOTTLE 1 APPL TOPICAL ×3 (08:35→21:25)
[2025-02-07] MEDS: predniSONE 1 MG TABLET 4 MG PO (08:36)
[2025-02-07] MEDS: Bacitracin Oint 14 GM TUBE 1 APPL TOPICAL ×2 (09:07→21:25)
[2025-02-07 09:12] LABS: Potassium 3.2 mmol/L (3.3-5.1)
[2025-02-07 11:22] VITALS: BP 126/60; PULSE 69; RESP 18; TEMP 36.7; O2SAT 95
--- NOTE | 2025-02-07 14:07 | HO.PM.IMPN ---
Subjective Subjective Date of Service: 02/07/25 Interval History: hypomagnesemia,chf Review of Systems seems comfortable Physical Exam Vital Signs: Vital Signs: Last Vital Signs Temp 98.1 F 02/07/25 11:22 Pulse 69 02/07/25 11:22 Resp 18 02/07/25 11:22 BP 126/60 02/07/25 11:22 Pulse Ox 95 02/07/25 11:22 O2 Del Method Room Air 02/07/25 11:22 BMI result Body Mass Index 15.1 Appearance: Alert.? Oriented , frail, chronically sick looking. cvs: rrr, [id number] . res: air entry fair ,somewhat diminshed . abd:soft ,nt, bs present. ext pulses present , no cyanosis . neuro: nonfocal. Objective Data Active Medications Acetaminophen (Acetaminophen 325 Mg Tablet) 650 mg PO Q6H PRN PRN Reason: Pain, Mild 1-3,fever,headache Amiodarone HCl (Amiodarone Hcl 200 Mg Tablet) 200 mg PO DAILY [facility] Last Admin: 02/07/25 08:34 Dose: 200 mg Documented By: VOLODYMYR Apixaban (Apixaban 2.5 Mg Tablet) 2.5 mg PO BID [facility] Last Admin: 02/07/25 08:34 Dose: 2.5 mg Documented By: VOLODYMYR Ascorbic Acid (Ascorbic Acid 250 Mg Tablet) 250 mg PO DAILY [facility] Last Admin: 02/07/25 08:34 Dose: 250 mg Documented By: VOLODYMYR Bacitracin (Bacitracin Oint 14 Gm Tube) 1 appl TOPICAL BID [facility]; Protocol Last Admin: 02/07/25 09:07 Dose: 1 appl Documented By: VOLODYMYR Bisacodyl (Bisacodyl 10 Mg Supp.Rect) 10 mg [place] DAILY PRN PRN Reason: 3 days with no BM Calcium Carbonate (Calcium Carbonate 750 Mg Tab.Chew) 750 mg PO Q4H PRN PRN Reason: Heartburn Cefuroxime Axetil (Cefuroxime Axetil 250 Mg Tablet) 250 mg PO Q12H [facility] Last Admin: 02/07/25 13:26 Dose: 250 mg Documented By: VOLODYMYR Clotrimazole (Clotrimazole 1 % Cream 15 Gm Tube) 1 appl TOPICAL BID [facility]; Protocol Last Admin: 02/07/25 08:35 Dose: Not Given Documented By: VOLODYMYR Non-Admin Reason: NYSTATIN APPLIED Escitalopram Oxalate (Escitalopram Oxalate 20 Mg Tablet) 20 mg PO DAILY [facility] Last Admin: 02/07/25 08:34 Dose: 20 mg Documented By: VOLODYMYR Furosemide (Furosemide 20 Mg Tablet) 20 mg PO DAILY [facility]; Protocol Last Admin: 02/07/25 08:34 Dose: 20 mg Documented By: VOLODYMYR Levothyroxine Sodium (Levothyroxine Sodium 125 Mcg Tablet) 125 mcg PO DAILY@0600 [facility] Last Admin: 02/07/25 06:03 Dose: 125 mcg Documented By: NELLY Magnesium Hydroxide (Milk Of Magnesia 30 Ml Oral.Susp) 30 ml PO DAILY PRN PRN Reason: Constipation Magnesium Oxide (Magnesium Oxide 400 Mg Tablet) 800 mg PO DAILY [facility] Last Admin: 02/07/25 08:34 Dose: 800 mg Documented By: VOLODYMYR Melatonin (Melatonin 3 Mg Tablet) 6 mg PO BEDTIME PRN PRN Reason: Insomnia Metoclopramide HCl (Metoclopramide Hcl 10 Mg/2 Ml Vial) 10 mg IVPUSH Q6H PRN PRN Reason: Nausea and Vomiting Last Admin: 02/05/25 02:42 Dose: 10 mg Documented By: NIR Nystatin (Nystatin Powder 15 Gm Bottle) 1 appl TOPICAL TID [facility]; Protocol Last Admin: 02/07/25 13:31 Dose: 1 appl Documented By: VOLODYMYR Omeprazole (Omeprazole 20 Mg Capsule.Dr) 20 mg PO DAILY@0630 [facility] Last Admin: 02/07/25 06:04 Dose: Not Given Documented By: NELLY Non-Admin Reason: unable to crush Polyethylene Glycol (Polyethylene Glycol 3350 17 Gm Powd.Pack) 17 gm PO DAILY PRN PRN Reason: Constipation Last Admin: 02/04/25 22:04 Dose: 17 gm Documented By: NIR Prednisone (Prednisone 1 Mg Tablet) 4 mg PO DAILY [facility] Last Admin: 02/07/25 08:36 Dose: 4 mg Documented By: VOLODYMYR Prochlorperazine Maleate (Prochlorperazine Maleate 5 Mg Tablet) 5 mg PO Q6H PRN PRN Reason: nausea Senna (Sennosides 8.6 Mg Tablet) 17.2 mg PO BEDTIME [facility] Last Admin: 02/06/25 20:18 Dose: 17.2 mg Documented By: BILLY Sodium Chloride (0.9 % Sodium Chloride Flush 3 Ml Syringe) 3 ml IVFLUSH QSHIFT [facility] Last Admin: 02/07/25 08:35 Dose: 3 ml Documented By: NATHANSCEL Labs 02/04/25 01:51 02/07/25 08:58 Assessment and Plan (1) Hypomagnesemia: Status: Acute Assessment and Plan: Acute CHF exacerbation with large B pleural effusions, no hypoxia BNP 615 LFTs slightly elevated (do not suspect shock liver) pt is on amiodorone . Telemetry mild elevated trop in setting of chf. Echo :Normal left ventricular cavity size. There is normal left ventricular wall thickness. The left ventricular systolic function is mildly decreased. The visually estimated ejection fraction is between 40-45%.Normal right ventricular cavity size. There is mildly decreased right ventricular systolic function. plan: Cardiology consulted, pt follows with Dr. Gutierrez at [facility] :Troponins elevated likely due to ischemic demand, 49 - 149- 160 non specific T wave changes on ECG.echo ef is 40% which seems similar -as per [facility] records. ? if Pleural effusions -?unclear etiology: As per [facility] records:Pleural fluid studies show?transudative fluid?with?no organisms, no evidence of infection. Cytology was sent which was negative for lymphoma but insufficient sample. cxr seems ?small effusion, has chest tube for which she need to follow up with Dr Garay ( she have seem pulm in 02/03/25 ) Acute Hypokalemia/hypomagnesemia Labs from today pending Hypokalemia improved Continue to trend and cardiology -? Mild component of CHF/switched to low-dose Lasix. Telemetry AFIB tsh normal continue Amiodorone /eliquis. LFTs elevated likely secondary to CHF or CLL, trend Sacral Decubitus Ulcer Unclear date of etiology, pt is underweight with poor appetite, living with CLL dx Nutritional consult ordered ensure added Wound care consult ordered moderate protein calorie malnutrition: BMI 15.1 Nutritional consult ordered ensure added Wound care consult ordered HX of CVA : overall is weak, malnourished dealing with CLL but no obvious deficits pt eval CLL recently on chemo Per pt's son, her oncology in [facility] oncology eval added UTI suspected UA looks suspicious for UTI Pt was started on Ceftin in ED will continue and follow culture No olguin indicated as pt is able to void Hypothyrooidism Checking TSH with reflex Continue current dose of levothyroxine, await lab results HLD Atorvastatin 20 mg HS, LFTs mildy elevated, will hold . Transaminitis Likely secondary to CHf exacerbation vs CLL hold statin As per the patient's son they decided for hospice meeting (virtual meeting Sunday)- awaiting hospice bed Quality Stroke Does the patient have a stroke diagnosis?: No Reason for No Anti-thrombotic by Day Two: N/A - Med Ordered VTE Prior VTE?: No VTE Risk Level:: Medical - moderate - high VTE Device Contraindication: N/A - Device Ordered VTE Drug Contraindication: N/A - Med Ordered
[2025-02-07 15:28] VITALS: BP 102/51; PULSE 70; RESP 16; TEMP 37.2; O2SAT 98
[2025-02-07 19:11] VITALS: BP 123/60; PULSE 74; RESP 18; TEMP 36.1; O2SAT 95
[2025-02-07] MEDS: Sennosides 8.6 MG TABLET 17.2 MG PO (21:23)
[2025-02-07] MEDS: Clotrimazole 1 % Cream 15 GM TUBE 1 APPL TOPICAL (21:25)
[2025-02-08] MEDS: cefuroxime axetiL 250 MG TABLET PO ×2 (00:09→12:46)
[2025-02-08] MEDS: 0.9 % Sodium Chloride Flush 3 ML SYRINGE IVFLUSH ×3 (00:10→17:50)
[2025-02-08 03:13] VITALS: BP 134/63; PULSE 60; RESP 16; TEMP 36.6; O2SAT 97
[2025-02-08] MEDS: Omeprazole 20 MG CAPSULE.DR PO (06:17)
[2025-02-08] MEDS: Levothyroxine Sodium 125 MCG TABLET PO (06:17)
[2025-02-08] MEDS: Furosemide 20 MG TABLET PO (08:13)
[2025-02-08] MEDS: Ascorbic Acid 250 MG TABLET PO (08:13)
[2025-02-08] MEDS: Escitalopram Oxalate 20 MG TABLET PO (08:13)
[2025-02-08] MEDS: predniSONE 1 MG TABLET 4 MG PO (08:13)
[2025-02-08] MEDS: Magnesium Oxide 400 MG TABLET 800 MG PO (08:13)
[2025-02-08] MEDS: Potassium Chloride ER 20 MEQ TAB.ER.PRT PO (08:13)
[2025-02-08] MEDS: Apixaban 2.5 MG TABLET PO ×2 (08:13→20:39)
[2025-02-08] MEDS: Amiodarone HCL 200 MG TABLET PO (08:14)
[2025-02-08 08:26] VITALS: BP 149/67; PULSE 63; RESP 18; TEMP 36.6; O2SAT 96
[2025-02-08] MEDS: Nystatin Powder 15 GM BOTTLE 1 APPL TOPICAL ×3 (11:47→20:42)
[2025-02-08] MEDS: Bacitracin Oint 14 GM TUBE 1 APPL TOPICAL ×2 (11:48→22:01)
[2025-02-08] MEDS: Clotrimazole 1 % Cream 15 GM TUBE 1 APPL TOPICAL ×2 (11:48→20:41)
--- NOTE | 2025-02-08 13:59 | HO.PM.IMPN ---
Subjective Subjective Date of Service: 02/08/25 Interval History: hypomagnesemia,chf Review of Systems seems comfortable Physical Exam Vital Signs: Vital Signs: Last Vital Signs Temp 97.8 F 02/08/25 08:26 Pulse 63 02/08/25 08:26 Resp 18 02/08/25 08:26 BP 149/67 H 02/08/25 08:26 Pulse Ox 96 02/08/25 08:26 O2 Del Method Room Air 02/08/25 08:26 BMI result Body Mass Index 15.1 Appearance: Alert.? Oriented , frail, chronically sick looking. cvs: rrr, [id number] . res: air entry fair ,somewhat diminshed . abd:soft ,nt, bs present. ext pulses present , no cyanosis . neuro: nonfocal. Objective Data Active Medications Acetaminophen (Acetaminophen 325 Mg Tablet) 650 mg PO Q6H PRN PRN Reason: Pain, Mild 1-3,fever,headache Amiodarone HCl (Amiodarone Hcl 200 Mg Tablet) 200 mg PO DAILY [facility] Last Admin: 02/08/25 08:14 Dose: 200 mg Documented By: SHAHNAZ Apixaban (Apixaban 2.5 Mg Tablet) 2.5 mg PO BID [facility] Last Admin: 02/08/25 08:13 Dose: 2.5 mg Documented By: SHAHNAZ Ascorbic Acid (Ascorbic Acid 250 Mg Tablet) 250 mg PO DAILY [facility] Last Admin: 02/08/25 08:13 Dose: 250 mg Documented By: SHAHNAZ Bacitracin (Bacitracin Oint 14 Gm Tube) 1 appl TOPICAL BID [facility]; Protocol Last Admin: 02/08/25 11:48 Dose: 1 appl Documented By: SHAHNAZ Bisacodyl (Bisacodyl 10 Mg Supp.Rect) 10 mg [place] DAILY PRN PRN Reason: 3 days with no BM Calcium Carbonate (Calcium Carbonate 750 Mg Tab.Chew) 750 mg PO Q4H PRN PRN Reason: Heartburn Cefuroxime Axetil (Cefuroxime Axetil 250 Mg Tablet) 250 mg PO Q12H [facility] Last Admin: 02/08/25 12:46 Dose: 250 mg Documented By: SHAHNAZ Clotrimazole (Clotrimazole 1 % Cream 15 Gm Tube) 1 appl TOPICAL BID [facility]; Protocol Last Admin: 02/08/25 11:48 Dose: 1 appl Documented By: SHAHNAZ Escitalopram Oxalate (Escitalopram Oxalate 20 Mg Tablet) 20 mg PO DAILY [facility] Last Admin: 02/08/25 08:13 Dose: 20 mg Documented By: SHAHNAZ Furosemide (Furosemide 20 Mg Tablet) 20 mg PO DAILY [facility]; Protocol Last Admin: 02/08/25 08:13 Dose: 20 mg Documented By: SHAHNAZ Levothyroxine Sodium (Levothyroxine Sodium 125 Mcg Tablet) 125 mcg PO DAILY@0600 [facility] Last Admin: 02/08/25 06:17 Dose: 125 mcg Documented By: BILLY Magnesium Hydroxide (Milk Of Magnesia 30 Ml Oral.Susp) 30 ml PO DAILY PRN PRN Reason: Constipation Magnesium Oxide (Magnesium Oxide 400 Mg Tablet) 800 mg PO DAILY [facility] Last Admin: 02/08/25 08:13 Dose: 800 mg Documented By: SHAHNAZ Melatonin (Melatonin 3 Mg Tablet) 6 mg PO BEDTIME PRN PRN Reason: Insomnia Metoclopramide HCl (Metoclopramide Hcl 10 Mg/2 Ml Vial) 10 mg IVPUSH Q6H PRN PRN Reason: Nausea and Vomiting Last Admin: 02/05/25 02:42 Dose: 10 mg Documented By: NIR Nystatin (Nystatin Powder 15 Gm Bottle) 1 appl TOPICAL TID [facility]; Protocol Last Admin: 02/08/25 11:47 Dose: 1 appl Documented By: SHAHNAZ Omeprazole (Omeprazole 20 Mg Capsule.Dr) 20 mg PO DAILY@0630 [facility] Last Admin: 02/08/25 06:17 Dose: 20 mg Documented By: BILLY Polyethylene Glycol (Polyethylene Glycol 3350 17 Gm Powd.Pack) 17 gm PO DAILY PRN PRN Reason: Constipation Last Admin: 02/04/25 22:04 Dose: 17 gm Documented By: NIR Prednisone (Prednisone 1 Mg Tablet) 4 mg PO DAILY [facility] Last Admin: 02/08/25 08:13 Dose: 4 mg Documented By: SHAHNAZ Prochlorperazine Maleate (Prochlorperazine Maleate 5 Mg Tablet) 5 mg PO Q6H PRN PRN Reason: nausea Senna (Sennosides 8.6 Mg Tablet) 17.2 mg PO BEDTIME [facility] Last Admin: 02/07/25 21:23 Dose: 17.2 mg Documented By: BILLY Sodium Chloride (0.9 % Sodium Chloride Flush 3 Ml Syringe) 3 ml IVFLUSH QSHIFT [facility] Last Admin: 02/08/25 08:14 Dose: 3 ml Documented By: SHAHNAZ Labs 02/04/25 01:51 02/07/25 08:58 Assessment and Plan (1) Hypomagnesemia: Status: Acute Assessment and Plan: Acute CHF exacerbation with large B pleural effusions, no hypoxia BNP 615 LFTs slightly elevated (do not suspect shock liver) pt is on amiodorone . Telemetry mild elevated trop in setting of chf. Echo :Normal left ventricular cavity size. There is normal left ventricular wall thickness. The left ventricular systolic function is mildly decreased. The visually estimated ejection fraction is between 40-45%.Normal right ventricular cavity size. There is mildly decreased right ventricular systolic function. plan: Cardiology consulted, pt follows with Dr. Gutierrez at [facility] :Troponins elevated likely due to ischemic demand, 49 - 149- 160 non specific T wave changes on ECG.echo ef is 40% which seems similar -as per [facility] records. ? if Pleural effusions -?unclear etiology: As per [facility] records:Pleural fluid studies show?transudative fluid?with?no organisms, no evidence of infection. Cytology was sent which was negative for lymphoma but insufficient sample. cxr seems ?small effusion, has chest tube for which she need to follow up with Dr Garay ( she have seem pulm in 02/03/25 ) Acute Hypokalemia/hypomagnesemia Labs from today pending Hypokalemia improved Continue to trend and cardiology -? Mild component of CHF/switched to low-dose Lasix. Telemetry AFIB tsh normal continue Amiodorone /eliquis. LFTs elevated likely secondary to CHF or CLL, trend Sacral Decubitus Ulcer Unclear date of etiology, pt is underweight with poor appetite, living with CLL dx Nutritional consult ordered ensure added Wound care consult ordered moderate protein calorie malnutrition: BMI 15.1 Nutritional consult ordered ensure added Wound care consult ordered HX of CVA : overall is weak, malnourished dealing with CLL but no obvious deficits pt eval CLL recently on chemo Per pt's son, her oncology in [facility] oncology eval added UTI suspected UA looks suspicious for UTI Pt was started on Ceftin in ED will continue and follow culture No olguin indicated as pt is able to void Hypothyrooidism Checking TSH with reflex Continue current dose of levothyroxine, await lab results HLD Atorvastatin 20 mg HS, LFTs mildy elevated, will hold . Transaminitis Likely secondary to CHf exacerbation vs CLL hold statin As per the patient's son they decided for hospice meeting (virtual meeting Sunday)- awaiting hospice bed Quality Stroke Does the patient have a stroke diagnosis?: No Reason for No Anti-thrombotic by Day Two: N/A - Med Ordered VTE Prior VTE?: No VTE Risk Level:: Medical - moderate - high VTE Device Contraindication: N/A - Device Ordered VTE Drug Contraindication: N/A - Med Ordered
[2025-02-08 15:53] VITALS: BP 103/54; PULSE 73; RESP 12; TEMP 36.7; O2SAT 95
[2025-02-08] MEDS: traMADoL HCL 50 MG TABLET PO (18:20)
[2025-02-08 19:28] VITALS: BP 133/62; PULSE 77; RESP 18; TEMP 36.7; O2SAT 95
[2025-02-08] MEDS: Sennosides 8.6 MG TABLET 17.2 MG PO (20:39)
[2025-02-09] MEDS: cefuroxime axetiL 250 MG TABLET PO ×2 (01:01→13:45)
[2025-02-09] MEDS: 0.9 % Sodium Chloride Flush 3 ML SYRINGE IVFLUSH ×3 (01:03→15:09)
[2025-02-09 03:32] VITALS: BP 128/68; PULSE 74; RESP 18; TEMP 36.3; O2SAT 96
[2025-02-09] MEDS: Omeprazole 20 MG CAPSULE.DR PO (05:36)
[2025-02-09] MEDS: Levothyroxine Sodium 125 MCG TABLET PO (05:36)
[2025-02-09 07:55] VITALS: BP 164/75; PULSE 69; RESP 14; TEMP 36.6; O2SAT 95
[2025-02-09] MEDS: Ascorbic Acid 250 MG TABLET PO (10:26)
[2025-02-09] MEDS: Furosemide 20 MG TABLET PO (10:26)
[2025-02-09] MEDS: Amiodarone HCL 200 MG TABLET PO (10:27)
[2025-02-09] MEDS: predniSONE 1 MG TABLET 4 MG PO (10:27)
[2025-02-09] MEDS: Magnesium Oxide 400 MG TABLET 800 MG PO (10:27)
[2025-02-09] MEDS: Nystatin Powder 15 GM BOTTLE 1 APPL TOPICAL ×3 (10:28→21:44)
[2025-02-09] MEDS: Bacitracin Oint 14 GM TUBE 1 APPL TOPICAL ×2 (10:28→21:44)
[2025-02-09] MEDS: Apixaban 2.5 MG TABLET PO ×2 (10:28→21:36)
[2025-02-09] MEDS: Clotrimazole 1 % Cream 15 GM TUBE 1 APPL TOPICAL ×2 (10:28→21:44)
[2025-02-09] MEDS: Escitalopram Oxalate 20 MG TABLET PO (10:28)
--- NOTE | 2025-02-09 10:35 | MHC.CLN ---
F/U PT IS MODERATELY MALNOURISHED. DIET RX: 2GM NA CHOPPED-APPROPRIATE. RECEIVING ENSURE BID TO PROVIDE 700KCALS, 40G PROTEIN TO PROMOTE WOUND HEALING. VARIABLE PO INTAKE, 25-75%. SKIN WITH DTI TO SACRUM/COCCYX/BUTTOCK AND DTI LEFT HIP PER WOUND RN. MONITOR PO INTAKE AND ENCOURAGE SUPPLEMENTS. FOLLOW FOR PLAN OF CARE.
[2025-02-09 11:10] LABS: Potassium 3.9 mmol/L (3.3-5.1)
--- NOTE | 2025-02-09 11:53 | P.PNIM_ITS ---
Subjective Subjective Date of Service: 02/09/25 Interval History: follow up Review of Systems seems comfortable Physical Exam 2 Vital Signs: Vital Signs: Last Vital Signs Temp 97.8 F 02/09/25 07:55 Pulse 69 02/09/25 07:55 Resp 14 02/09/25 07:55 BP 164/75 H 02/09/25 07:55 Pulse Ox 95 02/09/25 07:55 O2 Del Method Room Air 02/09/25 07:55 BMI result Body Mass Index 15.1 Appearance: Alert.? Oriented , frail, chronically sick looking. cvs: [id number], [id number] . res: air entry fair ,somewhat diminshed . abd:soft ,nt, bs present. ext pulses present , no cyanosis . neuro: nonfocal. Objective Data Active Medications Acetaminophen (Acetaminophen 325 Mg Tablet) 650 mg PO Q6H PRN PRN Reason: Pain, Mild 1-3,fever,headache Amiodarone HCl (Amiodarone Hcl 200 Mg Tablet) 200 mg PO DAILY [facility] Last Admin: 02/09/25 10:27 Dose: 200 mg Documented By: ASHUTOSH Apixaban (Apixaban 2.5 Mg Tablet) 2.5 mg PO BID [facility] Last Admin: 02/09/25 10:28 Dose: 2.5 mg Documented By: ASHUTOSH Ascorbic Acid (Ascorbic Acid 250 Mg Tablet) 250 mg PO DAILY [facility] Last Admin: 02/09/25 10:26 Dose: 250 mg Documented By: ASHUTOSH Bacitracin (Bacitracin Oint 14 Gm Tube) 1 appl TOPICAL BID [facility]; Protocol Last Admin: 02/09/25 10:28 Dose: 1 appl Documented By: ASHUTOSH Bisacodyl (Bisacodyl 10 Mg Supp.Rect) 10 mg [place] DAILY PRN PRN Reason: 3 days with no BM Calcium Carbonate (Calcium Carbonate 750 Mg Tab.Chew) 750 mg PO Q4H PRN PRN Reason: Heartburn Cefuroxime Axetil (Cefuroxime Axetil 250 Mg Tablet) 250 mg PO Q12H [facility] Last Admin: 02/09/25 01:01 Dose: 250 mg Documented By: BRONWYN Clotrimazole (Clotrimazole 1 % Cream 15 Gm Tube) 1 appl TOPICAL BID [facility]; Protocol Last Admin: 02/09/25 10:28 Dose: 1 appl Documented By: ASHUTOSH Escitalopram Oxalate (Escitalopram Oxalate 20 Mg Tablet) 20 mg PO DAILY [facility] Last Admin: 02/09/25 10:28 Dose: 20 mg Documented By: ASHUTOSH Furosemide (Furosemide 20 Mg Tablet) 20 mg PO DAILY [facility]; Protocol Last Admin: 02/09/25 10:26 Dose: 20 mg Documented By: ASHUTOSH Levothyroxine Sodium (Levothyroxine Sodium 125 Mcg Tablet) 125 mcg PO DAILY@0600 [facility] Last Admin: 02/09/25 05:36 Dose: 125 mcg Documented By: BRONWYN Magnesium Hydroxide (Milk Of Magnesia 30 Ml Oral.Susp) 30 ml PO DAILY PRN PRN Reason: Constipation Magnesium Oxide (Magnesium Oxide 400 Mg Tablet) 800 mg PO DAILY [facility] Last Admin: 02/09/25 10:27 Dose: 800 mg Documented By: ASHUTOSH Melatonin (Melatonin 3 Mg Tablet) 6 mg PO BEDTIME PRN PRN Reason: Insomnia Metoclopramide HCl (Metoclopramide Hcl 10 Mg/2 Ml Vial) 10 mg IVPUSH Q6H PRN PRN Reason: Nausea and Vomiting Last Admin: 02/05/25 02:42 Dose: 10 mg Documented By: NIR Nystatin (Nystatin Powder 15 Gm Bottle) 1 appl TOPICAL TID [facility]; Protocol Last Admin: 02/09/25 10:28 Dose: 1 appl Documented By: ASHUTOSH Omeprazole (Omeprazole 20 Mg Capsule.Dr) 20 mg PO DAILY@0630 [facility] Last Admin: 02/09/25 05:36 Dose: 20 mg Documented By: BRONWYN Polyethylene Glycol (Polyethylene Glycol 3350 17 Gm Powd.Pack) 17 gm PO DAILY PRN PRN Reason: Constipation Last Admin: 02/04/25 22:04 Dose: 17 gm Documented By: NIR Prednisone (Prednisone 1 Mg Tablet) 4 mg PO DAILY [facility] Last Admin: 02/09/25 10:27 Dose: 4 mg Documented By: ASHUTOSH Prochlorperazine Maleate (Prochlorperazine Maleate 5 Mg Tablet) 5 mg PO Q6H PRN PRN Reason: nausea Senna (Sennosides 8.6 Mg Tablet) 17.2 mg PO BEDTIME [facility] Last Admin: 02/08/25 20:39 Dose: 17.2 mg Documented By: BRONWYN Sodium Chloride (0.9 % Sodium Chloride Flush 3 Ml Syringe) [facility] Last Admin: 02/09/25 10:25 Dose: 3 ml Documented By: ASHUTOSH Tramadol HCl (Tramadol Hcl 50 Mg Tablet) 50 mg PO Q4H PRN PRN Reason: Pain, Moderate(Pain Scale 4-6) Last Admin: 02/08/25 18:20 Dose: 50 mg Documented By: SHAHNAZ Labs 02/04/25 01:51 02/09/25 10:54 Assessment and Plan (1) Hypokalemia: Status: Acute Assessment and Plan: Acute CHF exacerbation with large B pleural effusions, no hypoxia BNP 615 LFTs slightly elevated (do not suspect shock liver) pt is on amiodorone . Telemetry mild elevated trop in setting of chf. Echo :Normal left ventricular cavity size. There is normal left ventricular wall thickness. The left ventricular systolic function is mildly decreased. The visually estimated ejection fraction is between 40-45%.Normal right ventricular cavity size. There is mildly decreased right ventricular systolic function. plan: Cardiology consulted, pt follows with Dr. Gutierrez at [facility] :Troponins elevated likely due to ischemic demand, 49 - 149- 160 non specific T wave changes on ECG.echo ef is 40% which seems similar -as per [facility] records. ? if Pleural effusions -?unclear etiology: As per [facility] records:Pleural fluid studies show?transudative fluid?with?no organisms, no evidence of infection. Cytology was sent which was negative for lymphoma but insufficient sample. cxr seems ?small effusion, has chest tube for which she need to follow up with Dr Garay ( she have seem pulm in 02/03/25 ) Acute Hypokalemia/hypomagnesemia Labs from today pending Hypokalemia improved Continue to trend and cardiology -? Mild component of CHF/switched to low-dose Lasix. Telemetry AFIB tsh normal continue Amiodorone /eliquis. LFTs elevated likely secondary to CHF or CLL, trend Sacral Decubitus Ulcer Unclear date of etiology, pt is underweight with poor appetite, living with CLL dx Nutritional consult ordered ensure added Wound care consult ordered moderate protein calorie malnutrition: BMI 15.1 Nutritional consult ordered ensure added Wound care consult ordered HX of CVA : overall is weak, malnourished dealing with CLL but no obvious deficits pt eval CLL recently on chemo Per pt's son, her oncology in [facility] oncology eval added UTI suspected UA looks suspicious for UTI Pt was started on Ceftin in ED will continue and follow culture No olguin indicated as pt is able to void Hypothyrooidism Checking TSH with reflex Continue current dose of levothyroxine, await lab results HLD Atorvastatin 20 mg HS, LFTs mildy elevated, will hold . Transaminitis Likely secondary to CHf exacerbation vs CLL hold statin As per the patient's son they decided for hospice meeting (virtual meeting Sunday)- awaiting hospice b Quality Stroke Does the patient have a stroke diagnosis?: No Reason for No Anti-thrombotic by Day Two: N/A - Med Ordered VTE Prior VTE?: No VTE Risk Level:: Medical - moderate - high VTE Device Contraindication: N/A - Device Ordered VTE Drug Contraindication: N/A - Med Ordered
--- NOTE | 2025-02-09 13:42 | MHC.SLORD ---
Speech Language Pathology Order Status: RN consulted, no concerns with pt PO tolerance. Family meeting pending. Pt denies dysphagia. 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
[2025-02-09] MEDS: traMADoL HCL 50 MG TABLET PO (15:06)
[2025-02-09 15:42] VITALS: BP 105/55; PULSE 69; RESP 16; TEMP 37.1; O2SAT 94
[2025-02-09 19:32] VITALS: BP 96/52; PULSE 72; RESP 16; TEMP 36.2; O2SAT 96
[2025-02-09] MEDS: Sennosides 8.6 MG TABLET 17.2 MG PO (21:36)
[2025-02-10] MEDS: cefuroxime axetiL 250 MG TABLET PO ×2 (00:41→13:01)
[2025-02-10] MEDS: 0.9 % Sodium Chloride Flush 3 ML SYRINGE IVFLUSH (00:44)
[2025-02-10 02:50] VITALS: BP 133/60; PULSE 62; RESP 17; TEMP 36.2; O2SAT 94
[2025-02-10] MEDS: Levothyroxine Sodium 125 MCG TABLET PO (05:30)
[2025-02-10] MEDS: Omeprazole 20 MG CAPSULE.DR PO (05:30)
--- NOTE | 2025-02-10 07:31 | HO.PM.IMPN ---
Subjective Subjective Date of Service: 02/10/25 Interval History: f/u on chf Physical Exam Vital Signs: Vital Signs: Last Vital Signs Temp 97.1 F 02/10/25 02:50 Pulse 62 02/10/25 02:50 Resp 17 02/10/25 02:50 BP 133/60 02/10/25 02:50 Pulse Ox 94 02/10/25 02:50 O2 Del Method Room Air 02/10/25 02:50 BMI result Body Mass Index 15.1 Appearance: Alert.? Oriented , frail, chronically sick looking. cvs: rrr, [id number] . res: air entry fair ,somewhat diminshed . abd:soft ,nt, bs present. ext pulses present , no cyanosis . neuro: nonfocal. Objective Data Active Medications Acetaminophen (Acetaminophen 325 Mg Tablet) 650 mg PO Q6H PRN PRN Reason: Pain, Mild 1-3,fever,headache Amiodarone HCl (Amiodarone Hcl 200 Mg Tablet) 200 mg PO DAILY [facility] Last Admin: 02/09/25 10:27 Dose: 200 mg Documented By: ASHUTOSH Apixaban (Apixaban 2.5 Mg Tablet) 2.5 mg PO BID [facility] Last Admin: 02/09/25 21:36 Dose: 2.5 mg Documented By: BRONWYN Ascorbic Acid (Ascorbic Acid 250 Mg Tablet) 250 mg PO DAILY [facility] Last Admin: 02/09/25 10:26 Dose: 250 mg Documented By: ASHUTOSH Bacitracin (Bacitracin Oint 14 Gm Tube) 1 appl TOPICAL BID [facility]; Protocol Last Admin: 02/09/25 21:44 Dose: 1 appl Documented By: BRONWYN Bisacodyl (Bisacodyl 10 Mg Supp.Rect) 10 mg [place] DAILY PRN PRN Reason: 3 days with no BM Calcium Carbonate (Calcium Carbonate 750 Mg Tab.Chew) 750 mg PO Q4H PRN PRN Reason: Heartburn Cefuroxime Axetil (Cefuroxime Axetil 250 Mg Tablet) 250 mg PO Q12H [facility] Last Admin: 02/10/25 00:41 Dose: 250 mg Documented By: BRONWYN Clotrimazole (Clotrimazole 1 % Cream 15 Gm Tube) 1 appl TOPICAL BID [facility]; Protocol Last Admin: 02/09/25 21:44 Dose: 1 appl Documented By: BRONWYN Escitalopram Oxalate (Escitalopram Oxalate 20 Mg Tablet) 20 mg PO DAILY [facility] Last Admin: 02/09/25 10:28 Dose: 20 mg Documented By: ASHUTOSH Furosemide (Furosemide 20 Mg Tablet) 20 mg PO DAILY [facility]; Protocol Last Admin: 02/09/25 10:26 Dose: 20 mg Documented By: ASHUTOSH Levothyroxine Sodium (Levothyroxine Sodium 125 Mcg Tablet) 125 mcg PO DAILY@0600 [facility] Last Admin: 02/10/25 05:30 Dose: 125 mcg Documented By: BRONWYN Magnesium Hydroxide (Milk Of Magnesia 30 Ml Oral.Susp) 30 ml PO DAILY PRN PRN Reason: Constipation Magnesium Oxide (Magnesium Oxide 400 Mg Tablet) 800 mg PO DAILY [facility] Last Admin: 02/09/25 10:27 Dose: 800 mg Documented By: ASHUTOSH Melatonin (Melatonin 3 Mg Tablet) 6 mg PO BEDTIME PRN PRN Reason: Insomnia Metoclopramide HCl (Metoclopramide Hcl 10 Mg/2 Ml Vial) 10 mg IVPUSH Q6H PRN PRN Reason: Nausea and Vomiting Last Admin: 02/05/25 02:42 Dose: 10 mg Documented By: NIR Nystatin (Nystatin Powder 15 Gm Bottle) 1 appl TOPICAL TID [facility]; Protocol Last Admin: 02/09/25 21:44 Dose: 1 appl Documented By: BRONWYN Omeprazole (Omeprazole 20 Mg Capsule.Dr) 20 mg PO DAILY@0630 [facility] Last Admin: 02/10/25 05:30 Dose: 20 mg Documented By: BRONWYN Polyethylene Glycol (Polyethylene Glycol 3350 17 Gm Powd.Pack) 17 gm PO DAILY PRN PRN Reason: Constipation Last Admin: 02/04/25 22:04 Dose: 17 gm Documented By: NIR Prednisone (Prednisone 1 Mg Tablet) 4 mg PO DAILY [facility] Last Admin: 02/09/25 10:27 Dose: 4 mg Documented By: ASHUTOSH Prochlorperazine Maleate (Prochlorperazine Maleate 5 Mg Tablet) 5 mg PO Q6H PRN PRN Reason: nausea Senna (Sennosides 8.6 Mg Tablet) 17.2 mg PO BEDTIME [facility] Last Admin: 02/09/25 21:36 Dose: 17.2 mg Documented By: BRONWYN Sodium Chloride (0.9 % Sodium Chloride Flush 3 Ml Syringe) 3 ml IVFLUSH QSHIFT [facility] Last Admin: 02/10/25 00:44 Dose: 3 ml Documented By: BRONWYN Tramadol HCl (Tramadol Hcl 50 Mg Tablet) 50 mg PO Q4H PRN PRN Reason: Pain, Moderate(Pain Scale 4-6) Last Admin: 02/09/25 15:06 Dose: 50 mg Documented By: ASHUTOSH Labs 02/04/25 01:51 02/09/25 10:54 Assessment and Plan (1) Hypokalemia: Status: Acute Plan 89/F here with Acute CHF exacerbation with large jesika pleural effusions, no hypoxia, resolved continue PO lasix 20 mg daily ech ef 40 to 45% outpatient follow up with Dr. Gutierrez Acute Hypokalemia/hypomagnesemia--resolved AFIB tsh normal continue Amiodorone /eliquis. LFTs elevated likely secondary to CHF or CLL, trend Sacral Decubitus Ulcer Unclear date of etiology, pt is underweight with poor appetite, living with CLL dx Nutritional consult ordered ensure added Wound care consult ordered moderate protein calorie malnutrition: BMI 15.1 Nutritional consult ordered ensure added Wound care consult ordered HX of CVA : overall is weak, malnourished dealing with CLL but no obvious deficits pt eval CLL recently on chemo Per pt's son, her oncology in [facility] oncology eval added UTI suspected, negative culture on ceftin since 02/04, stop Hypothyrooidism, TSH nomral HLD, lipitor on hoold d/t elevated LFTs Transaminitis, d/t passive liver congestion from chf, recheck family deciding on hospice Quality Stroke Does the patient have a stroke diagnosis?: No Reason for No Anti-thrombotic by Day Two: N/A - Med Ordered VTE Prior VTE?: No VTE Risk Level:: Medical - moderate - high VTE Device Contraindication: N/A - Device Ordered VTE Drug Contraindication: N/A - Med Ordered
[2025-02-10 07:32] VITALS: BP 132/62; PULSE 61; RESP 16; TEMP 36.8; O2SAT 92
[2025-02-10] MEDS: Apixaban 2.5 MG TABLET PO (09:18)
[2025-02-10] MEDS: traMADoL HCL 50 MG TABLET PO (09:18)
[2025-02-10] MEDS: Bacitracin Oint 14 GM TUBE 1 APPL TOPICAL (09:18)
[2025-02-10 09:19] VITALS: BP 134/60
[2025-02-10] MEDS: Escitalopram Oxalate 20 MG TABLET PO (09:19)
[2025-02-10] MEDS: Ascorbic Acid 250 MG TABLET PO (09:19)
[2025-02-10] MEDS: Clotrimazole 1 % Cream 15 GM TUBE 1 APPL TOPICAL (09:19)
[2025-02-10] MEDS: Furosemide 20 MG TABLET PO (09:19)
[2025-02-10] MEDS: Magnesium Oxide 400 MG TABLET 800 MG PO (09:19)
[2025-02-10] MEDS: Amiodarone HCL 200 MG TABLET PO (09:20)
[2025-02-10] MEDS: predniSONE 1 MG TABLET 4 MG PO (09:20)
[2025-02-10] MEDS: Nystatin Powder 15 GM BOTTLE 1 APPL TOPICAL ×2 (09:20→15:35)
--- NOTE | 2025-02-10 10:37 | P.DS_ITS ---
DS: Providers Provider Date of Service: 02/10/25 Date of admission: 02/04/25 11:15 Date of discharge: 02/10/25 Primary care physician: None Physician Consults: 02/04/25 11:23 Consult to Cardiology Routine Consulting Provider: [facility] Reason for consultation: CHF exacerbation hx of CHF, CVA troponins elevated, BNP 615 Has provider been notified: No 02/04/25 11:46 Consult to Wound Care Routine Reason for consultation: bed sores backside, abrasion Left cheek and behind neck Has provider been notified: No 02/04/25 15:06 Consult to Hematology / Oncology Routine Consulting Provider: [facility] Reason for consultation: cxr? extensive b/l opacities/effusions-with hx CLL Has provider been notified: No DS: Diagnosis Discharge Diagnosis (1) Hypokalemia: Status: Acute DS: Summary Hospital Course Hospital Course: admission hpi from 02/04 Chief Complaint: s/p fall no LOC Pt is an 89 yo female with past medical history of hypothyroidism, GERD, CVA, B maculardegenerative changes, lymphoma diagnosed 2023 currently on chemotherapy, depression, osteoarthritis, recent weight loss and frailty due to lymphoma diagnosis, systolic CHF and history of cholecystectomy, full hysterectomy and R mastectomy due to breast cancer age 60 presents to [facility] status post fall at [facility]. Patient stated she was trying to turn in bed and fell through the bed but was able to call help. Patient does not recall loss of consciousness. Patient currently has abrasions on the left cheek and behind the neck area. CT of the head and cervical spine are all negative for any acute issues. Wrist xrays of R wristy also done and note osteogenerative changes byt no acute findings. Patient is currently alert and orientated x3 moving all extremities. In addition chest x-ray noted large bilateral pleural effusions and troponins that have elevated from 50 to 149 to now 160 during her time in the emergency department. EKG is negative for any ischemic changes but notes a Sinus rhythm, first-degree AV block, heart rate 75, no ST segment depression, nonspecific T-wave changes in V5 V6, QTC 413. Cardiology had been contacted by ED staff prior to admission. Patient denies any chest pain or SOB at rest. Pt is not currently requiring oxygen as well. Pt did receive 10 IV lasix in ED. Pt was hypokalmeic on admission, 2.7 but with supplementation, this has been corrected. Patient is considered frail with significant weight loss since 2023 of over 65 lb secondary to a diagnosis of lymphoma. Patient was to see the oncologist today at [facility] to discuss resumption of chemotherapy but per patient's son who is also the healthcare proxy, chemo likely will not resume. Reviewed advanced directives patient is currently a DNR DNI. Pt follows with Dr Gutierrez at [facility]. Last echo was 11/06/2023 per pt's daughter. hospital course: The patient is an 89-year-old female with a past medical history of hypothyroidism, GERD, cerebrovascular accident (CVA), bilateral macular degenerative changes, lymphoma diagnosed in 2023 currently undergoing chemotherapy, depression, osteoarthritis, recent weight loss and frailty due to lymphoma, systolic heart failure, and a history of cholecystectomy, total hysterectomy, and right mastectomy for breast cancer at age 60. She presented to the [facility] following a fall at [facility]. She was admitted for the management of heart failure, adult failure to thrive, a sacral decubitus ulcer, and moderate to severe protein-calorie malnutrition, with a BMI of only 15. During hospitalization, she was treated for heart failure, hypokalemia, hypomagnesemia, atrial fibrillation, sacral decubitus ulcer, and malnutrition. Given her continued overall decline, the family opted for hospice care, and the patient was discharged home accordingly. Acute CHF exacerbation with large jesika pleural effusions, no hypoxia, resolved continue PO lasix 20 mg daily ech ef 40 to 45% outpatient follow up with Dr. Gutierrez if desires Acute Hypokalemia/hypomagnesemia--resolved AFIB tsh normal continue Amiodorone /eliquis. LFTs elevated likely secondary to CHF or CLL, trend Sacral Decubitus Ulcer Unclear date of etiology, pt is underweight with poor appetite, living with CLL dx Nutritional consult ordered ensure added Wound care consult ordered moderate protein calorie malnutrition: BMI 15.1 Nutritional consult ordered ensure added Wound care consult ordered HX of CVA : overall is weak, malnourished dealing with CLL but no obvious deficits pt eval CLL recently on chemo Per pt's son, her oncology in [facility] oncology eval added UTI suspected, negative culture on ceftin since 02/04, stop Hypothyrooidism, TSH nomral HLD, lipitor on hoold d/t elevated LFTs Transaminitis, d/t passive liver congestion from chf, recheck [facility] home with hospice Time Attestation Discharge Coordination Time (in mins): 40 Quality: Safe Use of Opioids Does Pt have an Active Cancer Diagnosis on the Problem List?: No Quality: Stroke Does the patient have a stroke diagnosis?: No Physical Exam Vital Signs: Vital Signs: Last Vital Signs Temp 98.2 F 02/10/25 07:32 Pulse 61 02/10/25 07:32 Resp 16 02/10/25 07:32 BP 134/60 02/10/25 09:19 Pulse Ox 92 02/10/25 07:32 O2 Del Method Room Air 02/10/25 07:32 BMI result Body Mass Index 15.1 DS: Data Data Completed and Pending Labs on day of discharge: Laboratory Results - last 24 hr 02/09/25 10:54 Potassium 3.9 D Discharge Plan Discharge Anticipated Discharge Date/Time: 02/10/25 10:35 Patient Disposition: Hospice - Home Discharge Diagnosis: heart failure, adult failure to thrive, decub ulcer Referrals: [facility] [Other] - 1 Day ([facility] will see [place] tomorrow 02/11 and pro vide hospice services) Physician,None [Physician] - 1 Week Discharge Medications: Continued multivitamin Tablet 1 tab PO DAILY acetaminophen 325 mg Tablet 650 mg PO Q6H PRN (Reason: Mild Pain (Scale Score 1-4)) Rx Instructions: max 3 grams in 24 hours atorvastatin 20 mg tablet 20 mg PO BEDTIME amiodarone 200 mg tablet 200 mg PO DAILY prochlorperazine maleate 5 mg tablet 5 mg PO Q6H PRN (Reason: nausea) prednisone 1 mg tablet 4 mg PO DAILY ascorbic acid (vitamin C) 250 mg Tablet 250 mg PO DAILY bisacodyl [Dulcolax (bisacodyl)] 10 mg Suppository 10 mg [place] DAILY PRN (Reason: 3 days with no BM) esomeprazole magnesium 40 mg capsule,delayed release(DR/EC) 40 mg PO DAILY levothyroxine 125 mcg tablet 125 mcg PO DAILY fludrocortisone 0.1 mg tablet 0.1 mg PO BID escitalopram oxalate 20 mg tablet 20 mg PO DAILY cholecalciferol (vitamin D3) 25 mcg (1,000 unit) Tablet 25 mcg PO DAILY Eliquis 2.5 mg Tablet 2.5 mg PO BID potassium chloride 20 mEq tablet extended release 20 meq PO DAILY Discharge Orders: Discharge Order (Routine); Ordered 02/10/25 Ordered By: Bird Trotter Diet: Advance to usual diet Activity on Discharge: As tolerated Stand Alone Forms: Patient Portal Discharge page Print Language: Korean Activity Restrictions/Additional Instructions: Please follow-up with your primary care physician tomorrow. If you have any worsening or new symptoms, please return to the emergency room or call 911 Care Plan Goals: home with hospice and ultimately comfort care Health Concerns: heart failure, adult failure to thrive, decub ulcer, afib Plan of Treatment: Home with hospice care Assessment: see above Patient Instructions: Skin Tear (ED), Fall Prevention (ED) Discharge Date/Time: 02/10/25 16:02
--- NOTE | 2025-02-10 10:39 | MHC.CM.PN ---
Per MD rounds patient medically cleared for dc home w/ family on hospice. CM reviewed w/ son, who met with patient's PCP, Tuan Veras MD, yesterday. PCP referred patient to [facility] ([phone]), who has accepted and will provide hospice services. DME to be delivered today prior to 12pm and SOC scheduled for tomorrow. CM confirmed w/ Irina @ [facility]. Patient's son and daughter will take time off of work and provide care. Will also start looking for private pay care, if needed for when son returns to work. BLS transport scheduled for 3:30pm. Son aware. IMM delivered.
[2025-02-10 15:39] VITALS: BP 113/57; PULSE 66; RESP 19; TEMP 37.2; O2SAT 98
== END 2025-02-10 16:02 | disposition hospice, home (50) | DRG 292 ==
LOC: HO.ED 07:39 → HO.EDOVER 11:31 → HO.IMC 15:51 → HO.S3 02-07 17:12
PROVIDERS: Emergency Medicine; Internal Medicine; Internal Medicine Medical Oncology; Admitting Provider Nurse Practitioner Family; Emergency Provider Emergency Medicine; PCP Internal Medicine; Visit Provider Internal Medicine
DX: I50.23 Acute on chronic systolic (congestive) heart failure (principal); C91.10 Chronic lymphocytic leukemia of B-cell type not having achieved remission; Z68.1 Body mass index [BMI] 19.9 or less, adult; N39.0 Urinary tract infection, site not specified; E44.0 Moderate protein-calorie malnutrition; I95.1 Orthostatic hypotension; I48.91 Unspecified atrial fibrillation; Z51.5 Encounter for palliative care; L89.159 Pressure ulcer of sacral region, unspecified stage; E87.6 Hypokalemia; E78.5 Hyperlipidemia, unspecified; E83.42 Hypomagnesemia; E87.5 Hyperkalemia; I44.0 Atrioventricular block, first degree; Z66 Do not resuscitate; E03.9 Hypothyroidism, unspecified; Z91.199 Patient's noncompliance with other medical treatment and regimen due to unspecified reason; Z79.01 Long term (current) use of anticoagulants; Z79.52 Long term (current) use of systemic steroids; Z79.899 Other long term (current) drug therapy
CPT/HCPCS: 36415; 70450; 71045; 72125; 73110; 80053; 81001; 82550; 83615; 83735; 83880; 84132; 84443; 84484; 85025; 85610; 87086; 92526; 92610; 93005; 93306; 97162; 99285; J1940; J2765; J3475; P9047; Q9957

== ENCOUNTER → 2025-02-04 02:05 | Outpatient (BNV) | payer MEDICARE, MEDICAID, SELFPAY | PROVIDERS: Visit Provider Radiology Diagnostic Radiology | DX: J90 Pleural effusion, not elsewhere classified (principal); M25.531 Pain in right wrist; S09.90XA Unspecified injury of head, initial encounter; W19.XXXA Unspecified fall, initial encounter | CPT/HCPCS: 70450; 72125; 73110 ==

== ENCOUNTER → 2025-02-04 11:15 | Outpatient (BNV) | payer MEDICARE, SELFPAY | PROVIDERS: Admitting Provider Nurse Practitioner Family; Emergency Provider Emergency Medicine; PCP Nurse Practitioner; Visit Provider Internal Medicine Cardiovascular Disease | DX: I50.23 Acute on chronic systolic (congestive) heart failure (principal) | CPT/HCPCS: 99223 ==

== ENCOUNTER → 2025-02-04 11:15 | Outpatient (BNV) | payer MEDICARE, SELFPAY | PROVIDERS: Admitting Provider Nurse Practitioner Family; Emergency Provider Emergency Medicine; PCP Nurse Practitioner; Visit Provider Nurse Practitioner Family | DX: E83.42 Hypomagnesemia (principal); I48.91 Unspecified atrial fibrillation | CPT/HCPCS: 99231; 99232; 99499 ==

== ENCOUNTER → 2025-02-04 11:15 | Outpatient (BNV) | payer MEDICARE, SELFPAY | PROVIDERS: Admitting Provider Nurse Practitioner Family; Emergency Provider Emergency Medicine; PCP Internal Medicine; Visit Provider Internal Medicine Medical Oncology | DX: C91.10 Chronic lymphocytic leukemia of B-cell type not having achieved remission (principal) | CPT/HCPCS: 99221 ==